=== PATIENT | female | born 1945 | race Caucasian/White ===

== ENCOUNTER → 2016-10-14 | Outpatient (CLI) | payer MEDICARE, OTHER ==
[2016-10-14 11:21] LABS: Blood Urea Nitrogen 15 mg/dL (7-17); Non-African American GFR(MDRD) >60 (>60 ml/min/1.73 sqM)
== END | disposition home or self-care (01) ==
LOC: LABWHC1 10:10
PROVIDERS: ATTEND Psychiatry & Neurology Neurology
DX: R26.89 Other abnormalities of gait and mobility (principal)
CPT/HCPCS: 36415; 82565; 84520

== ENCOUNTER → 2016-10-28 | Outpatient (CLI) | payer MEDICARE, OTHER ==
--- NOTE | 2016-10-28 21:20 | MR ---
MRI of the brain with and without contrast HISTORY: Headaches. TECHNIQUE: T1-weighted sagittal, T2, FLAIR, and diffusion axial, postcontrast T1 axial and coronal vi ews of the brain are submitted. CONTRAST: 15 mL MultiHance graft comparison: CT brain 04/11/2016 FINDINGS: There is no evidence of acute ischemia. The ventricles, basal cisterns, and sulci overlying the co nvexities are consistent with moderate degenerative change. There are severe changes of chronic sinusitis. Mild changes of chronic mastoiditis. Craniocervical junction maintained. Sella turcica has a normal appearance. There is no evidence of cerebellopontine angle mass. There is normal enhancement of the vasculature i ncluding the dural venous sinuses. WHITE MATTER: There are diffuse as well as numerous focal areas of abnormal signal throughout the white matter bila terally. Findings are nonspecific but most typical remote microvascular ischemia. IMPRESSION: 1. No acute intracranial process. 2. Degenerative and nonspecific diffuse white matter changes which are most typical remote microvascu lar ischemia. 3. Severe pansinusitis. Correlate clinically.
== END | disposition home or self-care (01) ==
LOC: RADMRIMAIN 20:19
PROVIDERS: ATTEND Psychiatry & Neurology Neurology
DX: D49.6 Neoplasm of unspecified behavior of brain (principal); J32.4 Chronic pansinusitis; R90.82 White matter disease, unspecified
CPT/HCPCS: 70553; A9577

== ENCOUNTER 2017-03-07 10:26 | Emergency (ER) | payer MEDICARE, OTHER ==
--- NOTE | 2017-03-07 11:38 | CT ---
EXAMINATION TYPE: CT brain darius jennings DATE OF EXAM: 03/07/2017 COMPARISON: 04/11/2016 HISTORY: Fall, head laceration CT DLP: 1251.60 mGycm, Automated exposure control for dose reduction was used. CONTRAST: Patient injected with 0 mL of Omnipaque 300. CT of the brain is performed utilizing 3 mm thick sections through the posterior fossa and 3 mm thick sections through the remaining calvarium. Study is performed within 24 hours of arrival to the hospital. No abnormal hyperdensity is present to suggest an acute intracranial hemorrhage. No mass lesion is evident. No acute infarcts are evident. There is some mild deep white matter hypodensity, most likely basis o f chronic white matter ischemic changes. Ventricles and sulci are mildly prominent for the patient age. No significant interval change is evident. There is an air-fluid level within the right sphenoid sinus. Correlate for right sphenoid sinusitis. IMPRESSIONS: 1. Mild chronic appearing periventricular white matter ischemic type changes with age-related atrophy . CT cervical spine. COMPARISON: None CT of the cervical spine is performed in the axial plane at 2 mm thick sections. Reconstructed image s in the coronal, and sagittal plane are reviewed on the computer. No acute fractures are evident. There is slight kyphosis centered at C5. There may be a mild anterolisthesis of C2 on C3 and C3 on C4 . Some retrolisthesis of C5 on C6 may be present. This may be accentuated in appearance by the endpla te spurring present There is loss of disc height C4-5. Complete loss of disc height is present C5-6. There is severe loss of disc height C6-7 mild loss of disc height C7-T1. Vertebral body heights are preserved. Facet degenerative changes are present C2-C3 contributing to some mild left foraminal narrowing. Face t hypertrophy is present C3-4 with severe right and mild left foraminal narrowing. Severe left forami nal stenosis is present from facet hypertrophy and uncovertebral joint hypertrophy at C4-5. Some mode rate foraminal narrowing is present on the right. Uncovertebral joint hypertrophy is present C5-6 mod erate to severe bilateral foraminal stenosis. Uncovertebral joint hypertrophy at C6-7 has moderate to severe bilateral foraminal stenosis. IMPRESSIONS: 1. Multilevel severe foraminal stenosis due to uncovertebral joint hypertrophy and facet hypertrophy throughout the cervical spine. 2. No acute osseous abnormality. 3. Degenerative disc changes, greatest at C5-6. 4. Posterior endplate spurring C5-6. 5. Minimal spondylolisthesis discussed above can be related to degenerative changes.
--- NOTE | 2017-03-07 12:18 | ED ---
General Adult HPI - General Chief complaint: Head Injury Stated complaint: Fall-head laceration Time Seen by Provider: 03/07/17 10:47 Source: patient, family, RN notes reviewed Mode of arrival: ambulatory Limitations: no limitations - History of Present Illness Initial comments: Patient 71-year-old female who presents emergency room today with a chief complaint of fall occurred earlier today states she was at the sink when she lost balance falling backwards hitting the back of her head causing a laceration to the back of her right elbow and her head. She does admit that she 's had frequent falls she's had multiple studies and appointments about this and it had difficult time figuring out why she loses her balance. She states this is nothing new that happened today she did not feel dizzy or lightheaded prior. She states she just fell backwards. She states she is not here to be seen for the falling symptoms but only because she has a laceration to the back of her head and elbow. She states her tetanus up-to-date. She denies any loss conscious. She denies any other complaints or associated symptoms. States she is not on any blood thinners. Patient denies any recent fever, chills, shortness of breath, chest pain, back pain, abdominal pain, nausea or vomiting, numbness or tingling, dysuria or hematuria, constipation or diarrhea, headaches or visual changes, or any other complaints. - Related Data Home Medications Medication Instructions Recorded Confirmed Aspirin EC [Ecotrin] 81 mg PO DAILY 04/11/16 03/07/17 Cyclobenzaprine [Flexeril] 10 mg PO HS 04/11/16 03/07/17 Hydrochlorothiazide [Hydrodiuril] 25 mg PO DAILY 04/11/16 03/07/17 Levothyroxine Sodium [Synthroid] 75 mcg PO DAILY 04/11/16 03/07/17 Meloxicam [Mobic] 7.5 mg PO BID 04/11/16 03/07/17 Omeprazole 20 mg PO HS 04/11/16 03/07/17 Simvastatin [Zocor] 80 mg PO DAILY 04/11/16 03/07/17 clonazePAM [KlonoPIN] 0.5 mg PO QID 04/11/16 03/07/17 risperiDONE [RisperDAL] 2 mg PO BID 04/11/16 03/07/17 carBAMazepine [Carbatrol] 400 mg PO Q12H 03/07/17 03/07/17 Allergies Allergy/AdvReac Type Severity Reaction Status Date / Time No Known Allergies Allergy Verified 03/07/17 11:02 Review of Systems ROS Statement: Those systems with pertinent positive or pertinent negative responses have been documented in the HPI. ROS Other: All systems not noted in ROS Statement are negative. Past Medical History Past Medical History: GERD/Reflux, Hyperlipidemia, Hypertension, Thyroid Disorder History of Any Multi-Drug Resistant Organisms: None Reported Past Surgical History: Cholecystectomy, Orthopedic Surgery Additional Past Surgical History / Comment(s): cataract surgery, cyst removal left breast. Past Anesthesia/Blood Transfusion Reactions: No Reported Reaction Past Psychological History: Anxiety, Bipolar, Depression Smoking Status: Former smoker Past Alcohol Use History: None Reported Past Drug Use History: None Reported - Past Family History Mother Family Medical History: No Reported History Father Family Medical History: No Reported History General Exam - General Exam Comments Initial Comments: General: The patient is awake and alert, in no distress, and does not appear acutely ill. Eye: Pupils are equal, round and reactive to light, extra-ocular movements are intact. No nystagmus. There is normal conjunctiva bilaterally. No signs of icterus. Ears, nose, mouth and throat: There are moist mucous membranes and no oral lesions. Neck: The neck is supple, there is no tenderness or JVD. Cardiovascular: There is a regular rate and rhythm. No murmur, rub or gallop is appreciated. Respiratory: Lungs are clear to auscultation, respirations are non-labored, breath sounds are equal. No wheezes, stridor, rales, or rhonchi. Musculoskeletal: Normal ROM, no tenderness. Strength 5/5. Sensation intact. Pulses equal bilaterally 2+. Neurological: A&O x 3. CN II-XII intact, There are no obvious motor or sensory deficits. Coordination appears grossly intact. Speech is normal. Skin: Laceration to the back of the right elbow measuring 1 cm. Larger laceration running linear to the back of the scalp measuring approximately 3 cm in length. No active bleeding in either area. Psychiatric: Cooperative, appropriate mood & affect, normal judgment. Limitations: no limitations Course Vital Signs 03/07/17 10:39 Temperature 97.2 F L Pulse Rate 81 Respiratory 20 Rate Blood Pressure 133/69 O2 Sat by Pulse 93 L Oximetry Procedures - Procedures Initial comment: 1 cm linear laceration to the back of the right elbow.The skin was anesthetized with 1% lidocaine. The laceration was then cleansed with Betadine and irrigated with normal saline. The wound was inspected, and there was no evidence of injury to deep structures. No foreign body was noted in the wound. A total of 2 skin sutures were placed utilizing 3-0 nylon. 3 cm linear laceration back of scalp. The skin was anesthetized with 1% lidocaine without epinephrine. The laceration was then cleansed with Betadine and irrigated with normal saline. The wound was inspected, and there was no evidence of injury to deep structures. No foreign body was noted in the wound. A total of 6 skin jessica were placed with good approximation. Medical Decision Making - Medical Decision Making Lacerations cleaned and closed here in the emergency room. Tetanus is up-to- date. CT of the head and neck negative for any acute abnormalities. At this time patient is resting comfortably like to be discharged home. Disposition Clinical Impression: Scalp laceration, Elbow laceration, Fall Disposition: HOME SELF-CARE Condition: Good Instructions: Laceration (ED) Additional Instructions: Please have sutures removed in 10-14 days and jessica removed in 10 days. Please note for any sign of infection which may include increased pain, swelling , redness, fever or chills. Please return to emergency room for any sign of infection or any other concerns. Referrals: Rod Morgan MD [Primary Care Provider] - 1-2 days Time of Disposition: 12:17
[2017-03-07 12:35] VITALS: BP 127/97; PULSE 88; RESP 18; TEMP 97.6
== END 2017-03-07 12:35 | disposition home or self-care (01) ==
LOC: EC 10:26
DX: S01.01XA Laceration without foreign body of scalp, initial encounter (principal); S51.011A Laceration without foreign body of right elbow, initial encounter; R29.6 Repeated falls; E78.5 Hyperlipidemia, unspecified; I10 Essential (primary) hypertension; K21.9 Gastro-esophageal reflux disease without esophagitis; E07.9 Disorder of thyroid, unspecified; F31.9 Bipolar disorder, unspecified; Z87.891 Personal history of nicotine dependence; Z79.1 Long term (current) use of non-steroidal anti-inflammatories (NSAID); Z79.82 Long term (current) use of aspirin; Z79.899 Other long term (current) drug therapy; W01.10XA Fall on same level from slipping, tripping and stumbling with subsequent striking against unspecified object, initial encounter; Y92.89 Other specified places as the place of occurrence of the external cause
CPT/HCPCS: 12002; 70450; 72125; 99283

== ENCOUNTER → 2017-07-13 | Outpatient (CLI) | payer MEDICARE, OTHER ==
--- NOTE | 2017-07-15 09:54 | MM ---
Reason for exam: screening (asymptomatic). Last mammogram was performed 1 year and 3 months ago. History: Patient is postmenopausal. Benign excisional biopsy of the right breast, July 29, 1998. 2 benign excisional biopsies of the left breast. Physical Findings: A clinical breast exam by your physician is recommended on an annual basis and results should be correlated with mammographic findings. MG 3D Screening Mammo W/Cad Bilateral CC and MLO view(s) were taken. Prior study comparison: April 05, 2016, bilateral MG 3d screening mammo w/cad. March 26, 2015, bilateral MG screening mammo w CAD. There are scattered fibroglandular densities. Stable benign round and skin calcifications on the left breast. No significant changes when compared with prior studies. ASSESSMENT: Negative, BI-RAD 1 RECOMMENDATION: Routine screening mammogram of both breasts in 1 year.
== END | disposition home or self-care (01) ==
LOC: RADMAMWWP 07:49
PROVIDERS: ATTEND Family Medicine
DX: Z12.31 Encounter for screening mammogram for malignant neoplasm of breast (principal)
CPT/HCPCS: 77063; G0202

== ENCOUNTER 2018-03-12 14:45 | Observation (INO) | payer MEDICARE, OTHER ==
[2018-03-12] MEDS ORDERED: ORPHENADRINE 30 MG/ML 2 ML VIAL IM STA (15:00)
[2018-03-12] MEDS ORDERED: ORPHENADRINE 30 MG/ML 2 ML VIAL IVP STA (15:04)
--- NOTE | 2018-03-12 15:54 | CT ---
EXAMINATION TYPE: CT lumbar spine wo con DATE OF EXAM: 03/12/2018 3:28 PM COMPARISON: NONE HISTORY: Low back pain CT DLP: 441.1 mGycm Automated exposure control for dose reduction was used. Unenhanced CT of the lumbar spine was performed. Bone and soft tissue window settings are submitted as well as coronal and sagittal reconstructions. The lumbar vertebra have normal alignment. The posterior elements are intact. There is degenerative d isc space narrowing throughout the lumbar spine with some sparing at L4-5 disc. There is spur formati on of the endplates. There is no compression fracture. There is multilevel hypertrophic lumbar facet arthropathy. There is mild spinal stenosis at L3-4 due to facet arthropathy and mild posterior disc b ulging. There is moderately severe spinal stenosis at L4-5 due to facet arthropathy and posterior dis c bulging. There is no lumbar paraspinal mass. Sacroiliac joints appear normal. IMPRESSION: There is spinal stenosis at L3-4. There is severe spinal stenosis at L4-5. No fracture.
[2018-03-12] MEDS ORDERED: MORPHINE SULFATE 2 MG/ML SYRINGE IV STA (16:12)
[2018-03-12] MEDS ORDERED: ONDANSETRON 4 MG/2 ML VIAL IVP PRN (18:16)
[2018-03-12] MEDS ORDERED: ACETAMINOPHEN TAB 325 MG TAB PO PRN (18:16)
[2018-03-12] MEDS ORDERED: NALOXONE 0.4 MG/ML 1 ML VIAL IV PRN (18:16)
[2018-03-12] MEDS ORDERED: methylPREDNISolone SOD SUCCI 125 MG/2 ML VIAL IV STA (18:21)
--- NOTE | 2018-03-12 18:24 | ED ---
Back Pain [facility] - General Chief Complaint: Back Pain/Injury Stated Complaint: Back Pain Time Seen by Provider: 03/12/18 14:48 Source: patient, EMS Limitations: no limitations - History of Present Illness Initial Comments: This patient is a 72-year-old woman who presents with severe low back pain. The patient states she has a history of chronic low back pain, but she states it has been much worse over the past few days. Now she is also having difficulty with getting out of bed and also difficulty with starting urination. The patient states she does have a little bit of radiation to both legs. She denies saddle anesthesia. MD Complaint: back pain -: days(s) Similar Symptoms Previously: Yes Place: home Radiation: none Severity: severe Quality: aching Consistency: constant Improves With: none Worsens With: movement Associated Symptoms: difficulty walking, difficulty urinating, other Treatments Prior to Arrival: NSAIDS - Related Data Home Medications Medication Instructions Recorded Confirmed Cyclobenzaprine [Flexeril] 10 mg PO HS 04/11/16 03/13/18 Hydrochlorothiazide [Hydrodiuril] 25 mg PO DAILY 04/11/16 03/13/18 Levothyroxine Sodium [Synthroid] 75 mcg PO DAILY 04/11/16 03/13/18 Meloxicam [Mobic] 7.5 mg PO BID 04/11/16 03/13/18 Omeprazole 20 mg PO HS 04/11/16 03/13/18 Simvastatin [Zocor] 80 mg PO DAILY 04/11/16 03/13/18 risperiDONE [RisperDAL] 2 mg PO BID 04/11/16 03/13/18 carBAMazepine [Carbatrol] 400 mg PO Q12H 03/07/17 03/13/18 Gabapentin [Neurontin] 300 mg PO BID 03/12/18 03/13/18 methylPREDNISolone Dose Pack See Taper PO DAILY 03/12/18 03/13/18 [Medrol Dose Pack] Alendronate Sodium [Fosamax] 35 mg PO Q7D 03/13/18 03/13/18 Calcium Carb-Vit D 500Mg-200Un 1 tab PO BID 03/13/18 03/13/18 [Oscal 500+D] Docusate [Colace] 100 mg PO HS 03/13/18 03/13/18 Lactulose 10 gm PO DAILY 03/13/18 03/13/18 clonazePAM [KlonoPIN] 1 mg PO QID 03/13/18 03/13/18 Allergies Allergy/AdvReac Type Severity Reaction Status Date / Time acetaminophen [From [facility]] Allergy Unknown Verified 03/13/18 09:37 hydrocodone [From [facility]] Allergy Unknown Verified 03/13/18 09:37 Review of Systems ROS Statement: Those systems with pertinent positive or pertinent negative responses have been documented in the HPI. ROS Other: All systems not noted in ROS Statement are negative. Constitutional: Denies: fever, chills, weakness Respiratory: Denies: cough, dyspnea Cardiovascular: Denies: chest pain, palpitations, edema Gastrointestinal: Denies: abdominal pain, vomiting, diarrhea, constipation Genitourinary: Reports: as per HPI, other (Difficulty with voiding). Denies: urgency, dysuria, frequency, hematuria Musculoskeletal: Reports: as per HPI, back pain Skin: Denies: rash, lesions Neurological: Denies: headache, weakness, numbness, paresthesias Past Medical History Past Medical History: GERD/Reflux, Hyperlipidemia, Hypertension, Thyroid Disorder History of Any Multi-Drug Resistant Organisms: None Reported Past Surgical History: Cholecystectomy, Orthopedic Surgery Additional Past Surgical History / Comment(s): cataract surgery, cyst removal left breast. Past Anesthesia/Blood Transfusion Reactions: No Reported Reaction Past Psychological History: Anxiety, Bipolar, Depression Smoking Status: Former smoker Past Alcohol Use History: None Reported Past Drug Use History: None Reported - Past Family History Mother Family Medical History: No Reported History Father Family Medical History: No Reported History General Exam Limitations: no limitations General appearance: alert, in no apparent distress Head exam: Present: atraumatic, normocephalic Eye exam: Present: normal appearance. Absent: scleral icterus, conjunctival injection Neck exam: Present: normal inspection, full ROM. Absent: tenderness Respiratory exam: Present: normal lung sounds bilaterally. Absent: respiratory distress, wheezes, rales, rhonchi, stridor Cardiovascular Exam: Present: regular rate, normal rhythm, normal heart sounds. Absent: systolic murmur, diastolic murmur, rubs, gallop GI/Abdominal exam: Present: soft, normal bowel sounds. Absent: distended, tenderness, guarding, rebound, rigid, mass, pulsatile mass, hernia Extremities exam: Present: normal inspection, normal capillary refill. Absent: pedal edema, calf tenderness Back exam: Present: normal inspection. Absent: CVA tenderness (R), CVA tenderness (L), paraspinal tenderness, vertebral tenderness Neurological exam: Present: alert, reflexes normal. Absent: motor sensory deficit Skin exam: Present: warm, dry, intact, normal color. Absent: rash Course Vital Signs 03/12/18 03/12/18 03/12/18 14:49 16:09 18:31 Temperature 97.9 F Pulse Rate 77 87 73 Respiratory 18 18 18 Rate Blood Pressure 179/84 162/86 139/73 O2 Sat by Pulse 96 99 96 Oximetry Medical Decision Making - Medical Decision Making This patient is 72-year-old woman presenting with low back pain and concerns of some possible new urinary retention. There is no acute injury. The patient does have some spinal stenosis visible on the computed tomography scan. I discussed the case with Birgit Tineo, with Dr. Chowdhury's service. They request that MRI be obtained in the morning and patient started on steroids. These have been ordered and case also discussed with admitting physician. - Lab Data Result diagrams: 03/12/18 16:58 03/13/18 09:00 Lab Results 03/12/18 03/12/18 03/12/18 Range/Units 16:58 16:58 16:58 WBC 6.9 (3.8-10.6) k/uL RBC 4.43 (3.80-5.40) m/uL Hgb 13.9 (11.4-16.0) gm/dL Hct 40.2 (34.0-46.0) % MCV 90.6 (80.0-100.0) fL MCH 31.3 (25.0-35.0) pg MCHC 34.6 (31.0-37.0) g/dL RDW 12.1 (11.5-15.5) % Plt Count 335 (150-450) k/uL Neutrophils % 68 % Lymphocytes % 23 % Monocytes % 7 % Eosinophils % 0 % Basophils % 0 % Neutrophils # 4.6 (1.3-7.7) k/uL Lymphocytes # 1.6 (1.0-4.8) k/uL Monocytes # 0.5 (0-1.0) k/uL Eosinophils # 0.0 (0-0.7) k/uL Basophils # 0.0 (0-0.2) k/uL Sodium 131 L (137-145) mmol/L Potassium 3.7 (3.5-5.1) mmol/L Chloride 93 L (98-107) mmol/L Carbon Dioxide 25 (22-30) mmol/L Anion Gap 13 mmol/L BUN 18 H (7-17) mg/dL Creatinine 0.60 (0.52-1.04) mg/dL Est GFR (CKD-EPI)AfAm >90 (>60 ml/min/1.73 sqM) Est GFR (CKD-EPI)NonAf >90 (>60 ml/min/1.73 sqM) Glucose 100 H (74-99) mg/dL Calcium 9.5 (8.4-10.2) mg/dL Urine Color Yellow Urine Appearance Clear (Clear) Urine pH 7.0 (5.0-8.0) Ur Specific [place] 1.012 (1.001-1.035) Urine Protein Negative (Negative) Urine Glucose (UA) Negative (Negative) Urine Ketones Negative (Negative) Urine Blood Negative (Negative) Urine Nitrite Negative (Negative) Urine Bilirubin Negative (Negative) Urine Urobilinogen <2.0 (<2.0) mg/dL Ur Leukocyte Esterase Negative (Negative) Disposition Clinical Impression: Lumbar back pain, Urinary retention Disposition: ADMITTED IP TO THIS HOSP Condition: Fair
[2018-03-12] MEDS: SODIUM CHLORIDE 0.9% 1,000 ML IV SCH (18:30)
[2018-03-12] MEDS ORDERED: methylPREDNISolone SOD SUCCI 125 MG/2 ML VIAL IV SCH (18:30)
[2018-03-12 18:44] LABS: Basophils % (A) 0 %; Eosinophils % (A) 0 %; HCT 40.2 % (34.0-46.0); HGB 13.9 gm/dL (11.4-16.0); Lymphocytes # (A) 1.6 k/uL (1.0-4.8); Lymphocytes % (A) 23 %; MCH 31.3 pg (25.0-35.0); MCHC 34.6 g/dL (31.0-37.0); MCV 90.6 fL (80.0-100.0); Mean Platelet Volume 6.7; Monocytes # (A) 0.5 k/uL (0-1.0); Monocytes % (A) 7 %; Neutrophils # (A) 4.6 k/uL (1.3-7.7); Neutrophils % (A) 68 %; Platelet Count 335 k/uL (150-450); RBC 4.43 m/uL (3.80-5.40); RDW 12.1 % (11.5-15.5); WBC 6.9 k/uL (3.8-10.6)
[2018-03-12 18:46] LABS: Appearance,Urine Clear (Clear); Bilirubin,Urine Negative (Negative); Blood,Urine Negative (Negative); Color,Urine Yellow; Glucose,Urine (UA) Negative (Negative); Ketones,Urine Negative (Negative); Leukocyte Esterase,Urine Negative (Negative); Nitrite,Urine Negative (Negative); Protein,Urine Negative (Negative); Specific Gravity,Urine 1.012 (1.001-1.035); Urobilinogen,Urine <2.0 mg/dL (<2.0)
[2018-03-12 19:07] LABS: Anion Gap 13 mmol/L; Blood Urea Nitrogen 18 mg/dL (7-17); Calcium 9.5 mg/dL (8.4-10.2); Carbon Dioxide 25 mmol/L (22-30); Chloride 93 mmol/L (98-107); Glucose 100 mg/dL (74-99); Potassium 3.7 mmol/L (3.5-5.1); Sodium 131 mmol/L (137-145)
[2018-03-12 19:44] VITALS: BMI 28.3
[2018-03-12] MEDS: carBAMazepine 200 MG TAB PO SCH ×2 (20:57)
[2018-03-12] MEDS: risperiDONE 2 MG TAB PO SCH (20:58)
[2018-03-12] MEDS: MELOXICAM 7.5 MG TAB PO SCH (20:58)
[2018-03-12] MEDS: PANTOPRAZOLE 40 MG TABLET PO SCH (20:58)
[2018-03-12] MEDS: CYCLOBENZAPRINE 10 MG TAB PO SCH (20:58)
[2018-03-12] MEDS: clonazePAM 0.5 MG TAB PO SCH (20:59)
[2018-03-13] MEDS: methylPREDNISolone SOD SUCCI 125 MG/2 ML VIAL IV SCH ×5 (00:26→23:56)
[2018-03-13] MEDS: LEVOTHYROXINE 75 MCG TAB PO SCH (04:56)
[2018-03-13] MEDS: MORPHINE SULFATE 2 MG/ML SYRINGE IV PRN ×3 (07:22→22:52)
[2018-03-13] MEDS: SODIUM CHLORIDE 0.9% 1,000 ML IV SCH (08:14)
[2018-03-13] MEDS: MELOXICAM 7.5 MG TAB PO SCH ×2 (08:19→20:01)
[2018-03-13] MEDS: clonazePAM 0.5 MG TAB PO SCH ×4 (08:19→21:42)
[2018-03-13] MEDS: risperiDONE 2 MG TAB PO SCH ×2 (08:20→21:43)
[2018-03-13] MEDS: ASPIRIN 81 MG PO SCH (08:21)
--- NOTE | 2018-03-13 08:21 | P.CNOR ---
History of Present Illness - [facility] Consult date: 03/13/18 Consult reason: low back pain History of present illness: Patient's very pleasant 72-year-old female who has a history of degenerative changes at her lumbar spine. Her symptoms became significantly worse over the past few days where she has been increasingly unable to ambulate. Her main issue is that her pain is centered at her lower back and toward her buttocks bilaterally. She has some symptoms down her bilateral legs worse on the right than left. Her pain worsens when she tries to get out of bed when she tries to ambulate and she is thus been unable ambulate over the past 3 days. She presented by ambulance to the hospital. She denies any acute injury. She denies any falls. She says she is able to urinate but she has to start and stop frequently. She does not feel weak in her legs but she is unable to ambulate on her legs due to pain. She has history of low back pain and lower extremity radiculopathy. 2 years ago she had facet injections with Dr. Branch did very well with these 2 years ago. She actually just saw Dr. Branch on Tuesday and was planning on proceeding with further interventional conservative treatment with him but was unable to proceed thus far and presented to the hospital. He she denies any fevers chills or night sweats. She hasn't used her neck or upper extremities. Review of Systems he denies fevers chills night sweats. Denies injury or trauma. Denies any weakness in her legs. Denies any bowel changes. She has some on and off starting with her screening when she urinates but is able to urinate. She had history of facet injections [address] Anthony did well with those. Past Medical History Past Medical History: GERD/Reflux, Hyperlipidemia, Hypertension, Musculoskeletal Disorder (Severe degenerative changes in the low back with history of low back pain and radiculopathy), Thyroid Disorder History of Any Multi-Drug Resistant Organisms: None Reported Past Surgical History: Cholecystectomy, Orthopedic Surgery Additional Past Surgical History / Comment(s): cataract surgery, cyst removal left breast. Both hips replaced, rt foot surgery with plate and screws, Past Anesthesia/Blood Transfusion Reactions: No Reported Reaction Past Psychological History: Anxiety, Bipolar, Depression Smoking Status: Former smoker Past Alcohol Use History: None Reported Past Drug Use History: None Reported - Past Family History Mother Family Medical History: No Reported History Father Family Medical History: No Reported History Medications and Allergies Home Medications Medication Instructions Recorded Confirmed Type Aspirin EC [Ecotrin] 81 mg PO DAILY 04/11/16 03/12/18 History Cyclobenzaprine [Flexeril] 10 mg PO HS 04/11/16 03/12/18 History Hydrochlorothiazide [Hydrodiuril] 25 mg PO DAILY 04/11/16 03/12/18 History Levothyroxine Sodium [Synthroid] 75 mcg PO DAILY 04/11/16 03/12/18 History Meloxicam [Mobic] 7.5 mg PO BID 04/11/16 03/12/18 History Omeprazole 20 mg PO HS 04/11/16 03/12/18 History Simvastatin [Zocor] 80 mg PO DAILY 04/11/16 03/12/18 History clonazePAM [KlonoPIN] 0.5 mg PO QID 04/11/16 03/12/18 History risperiDONE [RisperDAL] 2 mg PO BID 04/11/16 03/12/18 History carBAMazepine [Carbatrol] 400 mg PO Q12H 03/07/17 03/12/18 History Gabapentin [Neurontin] 300 mg PO DAILY 03/12/18 03/12/18 History methylPREDNISolone Dose Pack 4 mg PO DAILY 03/12/18 03/12/18 History [Medrol Dose Pack] Allergies Allergy/AdvReac Type Severity Reaction Status Date / Time acetaminophen [From [place]] Allergy Unknown Verified 03/12/18 14:49 hydrocodone [From [place]] Allergy Unknown Verified 03/12/18 14:49 Physical Examination Osteopathic Statement: *. No significant issues noted on an osteopathic structural exam other than those noted in the History and Physical/Consult. - L Spine: dermatomal strength & reflexes bilateral Strength: hip flexion: 5/5 (At her lower back she has some diffuse spasm. She has some tenderness over her lower back diffusely. There is no open wounds lacerations or abrasions. At her lower extremity she has sustained dorsal flexion plantarflexion and extensor hallucis longus intact. She is able to lift her legs up off the bed independently without any pain or problems. She has significant pain at her lower back when she tries to mobilize rollover and get out of bed. She has sustained dorsal to plantar flexion and EHL intact. There is no hyperreflexia. There is no clonus. Her thighs and calves soft nontender. Her abdomen soft nontender. Her upper extremity is have full active and passive range of motion.) Results - Labs Labs: Abnormal Lab Results - Last 24 Hours (Table) 03/12/18 Range/Units 16:58 Sodium 131 L (137-145) mmol/L Chloride 93 L (98-107) mmol/L BUN 18 H (7-17) mg/dL Glucose 100 H (74-99) mg/dL H & H 03/12/18 Range/Units 16:58 Hgb 13.9 (11.4-16.0) gm/dL Hct 40.2 (34.0-46.0) % Result Diagrams: 03/12/18 16:58 03/12/18 16:58 - Diagnostic results CT Scan - lumbar: report reviewed, image reviewed (Computed tomography scan of her lumbar spine was performed yesterday and I have reviewed the images and the results. She has significant disc degeneration at L2-3 L3 4 and L4 5. There is severe facet arthrosis at each level. She has severe spinal stenosis particularly at L4 5 and L3 4. There is moderate to severe spinal stenosis L2- 3. There is significant disc degeneration and some evidence of stenosis L4 L5 S1. There is no obvious fracture.) Assessment and Plan Assessment: Acute on chronic low back pain Inability to ambulate Severe spinal stenosis L3 4 L4 5 Facet arthrosis and degenerative disc disease Plan: Acute on chronic low back pain Inability to ambulate Severe spinal stenosis L3 4 L4 5 Facet arthrosis and degenerative disc disease The patient has inability to ambulate and severe intractable low back pain. She has primarily acute on chronic issues with her severe spinal stenosis L3 4 L4 5 and further stenosis L2-3 and L5-S1. She has severe facet arthrosis and disc degeneration. I do not see a specific new injury she has an acute flareup at this point. She is having lower extremity radiculopathy bilaterally worse on the right than the left. The patient has been started on IV steroid medication was appropriate as well as her a medications. We will need an MRI to obtain further detail of her lumbar spine to assess the severity of the stenosis and it determine the adjacent levels. The MRI has been ordered already and it is pending. We will have interventional pain management see her for the possibly of epidural steroid injections while she is here in Hospital. After hospitalization she is already scheduled to follow-up with Dr. Branch and I think that is appropriate in terms of maximizing interventional pain management as she did have some improvement in the past with facet injections. We will also have physical therapy see her to try to help her mobilize as well. She would be a candidate for surgical intervention in the form of decompression and fusion surgery for her lumbar spine if interventional pain management and conservative measures were to fail. I do not think that we would plan to perform surgical intervention during this hospitalization and explained that to her and her daughter at bedside. I would like to see her maximizing interventional pain management and conservative treatment at this point to try to alleviate the acute exacerbation that she is having. We will continue to follow her closely. Time with Patient: Greater than 30
[2018-03-13] MEDS: ATORVASTATIN 40 MG TAB PO SCH (08:22)
[2018-03-13] MEDS: GABAPENTIN 300 MG CAP PO SCH (08:22)
[2018-03-13] MEDS: HYDROCHLOROTHIAZIDE 25 MG TAB PO SCH (08:22)
[2018-03-13 09:34] LABS: ALT 74 U/L (9-52); AST 56 U/L (14-36); Albumin 3.3 g/dL (3.5-5.0); Alkaline Phosphatase 118 U/L (38-126); Anion Gap 10 mmol/L; Blood Urea Nitrogen 11 mg/dL (7-17); Calcium 8.9 mg/dL (8.4-10.2); Carbon Dioxide 28 mmol/L (22-30); Chloride 93 mmol/L (98-107); Glucose 177 mg/dL (74-99); Potassium 3.2 mmol/L (3.5-5.1); Sodium 131 mmol/L (137-145); Total Bilirubin 0.2 mg/dL (0.2-1.3); Total Protein 5.7 g/dL (6.3-8.2)
[2018-03-13] MEDS ORDERED: Potassium Replacement Protocol 1 EACH MISC MISCELLANE PRN (12:47)
--- NOTE | 2018-03-13 12:47 | P.HPIM ---
History of Present Illness H&P Date: 03/13/18 Chief Complaint: back pain 72-year-old female who presented to the emergency room with a chief complaint of severe back pain. The patient does have a history of chronic lower back pain but states it has worsened in severity since November. She states over the last few days her pain has been so severe she has been unable to ambulate. She also reports difficulty with urination and inability to start her stream. The patient reports a history of facet block injections x [address] Branch. She reports the last one was approximately two years ago. She was seen by Dr. Branch on Tuesday and had requested a third injection but was able to have it completed due to insurance reasons per patients daughter. She was started on PO steroids and Neurontin by Dr. Branch. Patient states her pain was so severe yesterday she was unable to ambulate at all. EMS was called and patient was brought to [facility] for further evaluation. The patient has a history of chronic low back pain, hyperlipidemia, hypertension , and gastroesophageal reflux disease. She also has a history of anxiety, bipolar, and depression. Surgical history includes bilateral hip replacements, right foot surgery with plate and screws, Cholecystectomy, and cataract surgery CT lumbar spine: Mild spinal stenosis at L3-4 due to facet arthropathy and mild posterior disc bulging. Moderately severe spinal stenosis at L4-5 due to facet arthropathy and posterior disc bulging. No fractures were visualized. Laboratory data: WBC 6.9. Hemoglobin 13.9. Platelet count 335. Sodium 131. Potassium 3.7. Chloride 93. BUN 18. Creatinine 0.60. Glucose 100. Urinalysis was unremarkable The patient was admitted to the hospital under the care of Dr. Morgan. Consultations were placed to orthopedics, Dr Chowdhury. Review of Systems GENERAL: Patient denies fever. Denies chills. EYES: Denies blurred vision. Denies vision changes. Denies eye pain. EARS, NOSE, MOUTH, & THROAT: Denies headache. Denies sore throat. Denies ear pain. RESPIRATORY: Denies cough. Denies shortness of breath. Denies sputum production. Denies hemoptysis. CARDIOVASCULAR: Denies chest pain or pressure. Denies palpitations. Denies arrhythmias. GASTROINTESTINAL: Denies abdominal pain. Denies diarrhea. Denies constipation. Denies nausea. Denies vomiting. Denies heartburn. Denies blood in the stool. GENITOURINARY: Positive for difficulty urinating and initiating urinary stream. Denies urinary frequency. Denies burning. Denies dysuria. Denies cloudy urine. Denies blood in the urine. MUSCULOSKELETAL: Positive for history of chronic back pain. Positive for increased severity of back pain and range of motion. Positive for difficulty with ambulation. INTEGUMENTARY: Denies pruitis. Denies rash. PSYCHIATRIC: Denies suicidal or homicial ideations. ENDOCRINE: Denies weight change. Denies polydipsia. Denies polyuria. HEMATOLOGIC: Denies bleeding disorders. Past Medical History Past Medical History: GERD/Reflux, Hyperlipidemia, Hypertension, Musculoskeletal Disorder (Severe degenerative changes in the low back with history of low back pain and radiculopathy), Thyroid Disorder History of Any Multi-Drug Resistant Organisms: None Reported Past Surgical History: Cholecystectomy, Orthopedic Surgery Additional Past Surgical History / Comment(s): cataract surgery, cyst removal left breast. Both hips replaced, rt foot surgery with plate and screws, Past Anesthesia/Blood Transfusion Reactions: No Reported Reaction Past Psychological History: Anxiety, Bipolar, Depression Smoking Status: Former smoker Past Alcohol Use History: None Reported Past Drug Use History: None Reported - Past Family History Mother Family Medical History: No Reported History Father Family Medical History: No Reported History Medications and Allergies Home Medications Medication Instructions Recorded Confirmed Type Cyclobenzaprine [Flexeril] 10 mg PO HS 04/11/16 03/13/18 History Hydrochlorothiazide [Hydrodiuril] 25 mg PO DAILY 04/11/16 03/13/18 History Levothyroxine Sodium [Synthroid] 75 mcg PO DAILY 04/11/16 03/13/18 History Meloxicam [Mobic] 7.5 mg PO BID 04/11/16 03/13/18 History Omeprazole 20 mg PO HS 04/11/16 03/13/18 History Simvastatin [Zocor] 80 mg PO DAILY 04/11/16 03/13/18 History risperiDONE [RisperDAL] 2 mg PO BID 04/11/16 03/13/18 History carBAMazepine [Carbatrol] 400 mg PO Q12H 03/07/17 03/13/18 History Gabapentin [Neurontin] 300 mg PO BID 03/12/18 03/13/18 History methylPREDNISolone Dose Pack See Taper PO DAILY 03/12/18 03/13/18 History [Medrol Dose Pack] Alendronate Sodium [Fosamax] 35 mg PO Q7D 03/13/18 03/13/18 History Calcium Carb-Vit D 500Mg-200Un 1 tab PO BID 03/13/18 03/13/18 History [Oscal 500+D] Docusate [Colace] 100 mg PO HS 03/13/18 03/13/18 History Lactulose 10 gm PO DAILY 03/13/18 03/13/18 History clonazePAM [KlonoPIN] 1 mg PO QID 03/13/18 03/13/18 History Allergies Allergy/AdvReac Type Severity Reaction Status Date / Time acetaminophen [From [place]] Allergy Unknown Verified 03/13/18 09:37 hydrocodone [From [place]] Allergy Unknown Verified 03/13/18 09:37 Physical Exam Vitals: Vital Signs Temp Pulse Pulse Resp BP BP Pulse Ox 03/13/18 05:00 97.7 F 92 16 140/77 94 L 03/12/18 21:30 98.9 F 99 17 143/77 95 03/12/18 19:50 97.7 F 87 16 144/74 94 L 03/12/18 18:31 73 18 139/73 96 03/12/18 16:09 87 18 162/86 99 03/12/18 14:49 97.9 F 77 18 179/84 96 Intake and Output 03/12/18 03/13/18 03/13/18 22:59 06:59 14:59 Intake Total 1680 Output Total 550 1000 Balance -550 680 Intake: IV 600 Sodium Chloride 0.9% 1, 600 000 ml @ 75 mls/hr IV . [id number] [facility] Rx#:[id number] Oral 1080 Output: Urine 550 1000 Uretheral ([place]) 350 1000 Other: Voiding Method Indwelling Catheter Weight 68.039 kg GENERAL: This is a 72-year-old female in no apparent distress at the time of examination. Pleasant and cooperative. HEENT: Head is atraumatic, normocephalic. Pupils are equal, round, and reactive to light. Sclerae anicteric. Conjunctivae are clear. Mucus membranes of the mouth are moist. Neck is supple. RESPIRATORY: Clear to ausculation. No wheezes, rales, or rhonchi. No use of accessory muscles. Patient maintaining oxygen saturation greater than 92%. No chest wall tenderness is noted on palpation or with deep breathing. CARDIOVASCULAR: Regular rate and rhythm. S1 and S2 noted. No systolic or diastolic murmur auscultated. No JVD noted. No S3 or S4 noted. GASTROINTESTINAL: No distention noted. Abdomen soft and round. Normal active bowel sounds auscultated x 4 quadrants. No pain or tenderness noted upon palpation. INTEGUMENTARY: No cyanosis. No jaundice. No rashes noted. No cellulitis noted. GENITOURINARY: Indwelling urinary catheter present secondary to urinary retention. Clear yellow urine. EXTREMITIES: Pain and tenderness noted upon palpation of lumbar spine. Sensation intact to bilateral lower extremities. Patient able to lift bilateral lower extremities off the bed and hold them, but reports of pain when this is performed. Patient able to perform plantar flexion and dorsiflexion-equal bilaterally. 2+ peripheral pulses. No evidence of peripheral edema. No calf tenderness noted. NEUROLOGIC: Cranial nerves II-XII intact. PSYCHIATRIC: Awake, alert, and oriented X 3. Appropriate affect. Intact judgement and insight. Results CBC & Chem 7: 03/12/18 16:58 03/13/18 09:00 Labs: Abnormal Lab Results - Last 24 Hours (Table) 03/12/18 Range/Units 16:58 Sodium 131 L (137-145) mmol/L Chloride 93 L (98-107) mmol/L BUN 18 H (7-17) mg/dL Glucose 100 H (74-99) mg/dL Thrombosis Risk Factor Assmnt - Choose All That Apply Each Risk Factor Represents 2 Points: Age 61-74 years, Patient confined to bed Thrombosis Risk Factor Assessment Total Risk Factor Score: 4 Thrombosis Risk Factor Assessment Level: Moderate Risk Assessment and Plan Plan: ASSESSMENT: Acute on chronic lumbar back pain, Intractable pain Urinary retention and difficulty initiating urinary stream, secondary to above Spinal stenosis of L3-4 and L4-5 Degenerative disc disease Hypertension Hyperlipidemia Hypothyroidism Generalized anxiety disorder Bipolar disorder Mild Hyponatremia, may be secondary to HCTZ PLAN: Dr. Chowdhury, orthopedics on consult. Appreciate recommendations and input Continue IV steroids: 60mg Q6 hours Pain management consulted for possible epidural injection MRI ordered. Await results Monitor sodium levels. Repeat this morning Continue urinary catheter PT/OT Home meds as appropriate GI prophylaxis: Protonix 40mg PO at HS DVT prophylaxis: SCDs to bilateral lower extremities. Encourage ambulation Monitor vital signs and address as appropriate Further recommendations pending patients clinical course Discharge plan: Patient to return home Nurse practitioner note has been reviewed by physician. Signing provider agrees with the documented findings, assessment, and plan of care.
[2018-03-13] MEDS: POTASSIUM CHLORIDE ER 20 MEQ TAB.ER PO SCH ×2 (12:55→13:47)
--- NOTE | 2018-03-13 15:26 | MR ---
EXAMINATION TYPE: MR lumbar spine wo con DATE OF EXAM: 03/13/2018 COMPARISON: MRI lumbar spine March 22, 2016. CT lumbar spine March 12, 2018 HISTORY: Back pain with urinary retention. TECHNIQUE: Multiplanar, multisequence imaging of the lumbar spine is performed without IV contrast. FINDINGS: Sagittal images of the lumbar spine show vertebral body heights and alignment to remain sat isfactory. There is multilevel disc space narrowing and disc desiccation. There is fairly moderate to advanced disc space narrowing L3-L4 level which is progressed from prior MRI, heterogeneous endplate changes are noted with mild to moderate anterior spurring. There is fairly moderate disc space narr owing L5-S1 level redemonstrated. Multilevel small posterior disc herniations are seen on sagittal im ages effacing anterior thecal sac. The conus medullaris remains normal in position and signal ending at T12-L1 disc space. The bone marrow signal intensity remains heterogeneous with moderate multileve l anterior and lateral spurring redemonstrated. Axial images at the T12-L1 level redemonstrate mild to moderate broad disc bulge effacing anterior th ecal sac and axial image 28, bilateral neural foramina are patent. Axial images at L1-L2 level show mild broad disc bulge mildly effacing anterior thecal sac with mild facet arthropathy bilaterally. Bilateral neural foramina are patent. Axial images at L2-L3 level show mild to moderate facet degenerative changes bilaterally. There is br oad disc bulge. There is mild effacement of the anterior and posterior lateral thecal sac. There is m ild bilateral anterior inferior neural foraminal narrowing. Axial images at L3-L4 level show moderate to advanced facet degenerative changes and ligamentum flavu m hypertrophy effacing posterior lateral thecal sac. There is moderate to severe broad disc bulge eff acing anterior thecal sac. There is moderate right and mild to moderate left-sided anterior inferior neural foraminal narrowing. Encroachment on right L3 nerve is felt present sagittal image 11 similar to prior as there is right lateral/foraminal disc protrusion component seen on axial image 13. Axial images at L4-L5 level show advanced facet degenerative changes and ligament flavum hypertrophy effacing posterior lateral thecal sac. There is broad-based posterior disc protrusion effacing anteri or thecal sac. Most prominent spinal canal stenosis is seen at this level on axial image 9 more promi nent than prior MRI. There is is mild bilateral neural foraminal narrowing at this level. Axial images at L5-S1 level show moderate facet degenerative changes bilaterally. There is broad disc bulge seen. Spinal canal is preserved. There is moderate to severe bilateral neural foraminal narrow ing with encroachment on both L5 nerve is felt present on sagittal images, this is not significantly changed from prior study. No suspicious retroperitoneal findings are seen. IMPRESSION: Multilevel degenerative changes in lumbar spine as detailed above, increased degenerative changes L3-L4 level are noted, increased spinal canal effacement or stenosis L4-L5 level is seen. Ot her findings as noted above.
[2018-03-13] MEDS: CYCLOBENZAPRINE 10 MG TAB PO SCH (20:01)
[2018-03-13] MEDS: PANTOPRAZOLE 40 MG TABLET PO SCH (20:02)
[2018-03-13] MEDS: carBAMazepine 200 MG TAB PO SCH (20:02)
[2018-03-13] MEDS: DOCUSATE 100 MG CAP PO SCH (20:05)
[2018-03-13 22:08] LABS: Glucose,Whole Blood 133 mg/dL (75-99)
[2018-03-13] MEDS: INSULIN ASPART 100 UNIT/ML 1 ML 10 ML VIAL SQ SCH (22:53)
[2018-03-14] MEDS: LEVOTHYROXINE 75 MCG TAB PO SCH (05:51)
[2018-03-14] MEDS: methylPREDNISolone SOD SUCCI 125 MG/2 ML VIAL IV SCH (05:51)
[2018-03-14] MEDS: MORPHINE SULFATE 2 MG/ML SYRINGE IV PRN ×2 (06:06→17:02)
[2018-03-14] MEDS: SODIUM CHLORIDE 0.9% 1,000 ML IV SCH ×2 (06:09→07:41)
[2018-03-14 06:57] LABS: Glucose,Whole Blood 137 mg/dL (75-99)
[2018-03-14] MEDS: INSULIN ASPART 100 UNIT/ML 1 ML 10 ML VIAL SQ SCH ×4 (07:31→20:33)
[2018-03-14] MEDS: carBAMazepine 200 MG TAB PO SCH ×2 (07:32→20:32)
[2018-03-14] MEDS: ATORVASTATIN 40 MG TAB PO SCH (07:33)
[2018-03-14] MEDS: DOCUSATE 100 MG CAP PO SCH ×2 (07:33→20:33)
[2018-03-14] MEDS: risperiDONE 2 MG TAB PO SCH ×2 (07:34→20:31)
[2018-03-14] MEDS: GABAPENTIN 300 MG CAP PO SCH (07:34)
[2018-03-14] MEDS: HYDROCHLOROTHIAZIDE 25 MG TAB PO SCH (07:35)
[2018-03-14] MEDS: ASPIRIN 81 MG PO SCH (07:39)
[2018-03-14] MEDS: clonazePAM 0.5 MG TAB PO SCH ×2 (07:51→12:23)
[2018-03-14] MEDS: MELOXICAM 7.5 MG TAB PO SCH ×2 (07:52→20:33)
[2018-03-14 08:20] LABS: ALT 61 U/L (9-52); AST 27 U/L (14-36); Albumin 3.7 g/dL (3.5-5.0); Alkaline Phosphatase 130 U/L (38-126); Anion Gap 11 mmol/L; Blood Urea Nitrogen 15 mg/dL (7-17); Calcium 9.5 mg/dL (8.4-10.2); Carbon Dioxide 27 mmol/L (22-30); Chloride 98 mmol/L (98-107); Glucose 114 mg/dL (74-99); Magnesium 1.9 mg/dL (1.6-2.3); Potassium 4.2 mmol/L (3.5-5.1); Sodium 136 mmol/L (137-145); Total Bilirubin 0.2 mg/dL (0.2-1.3); Total Protein 6.2 g/dL (6.3-8.2)
--- NOTE | 2018-03-14 10:35 | P.PN ---
Subjective Progress Note Date: 03/14/18 72-year-old female who presented to the emergency room with a chief complaint of severe back pain. The patient does have a history of chronic lower back pain but states it has worsened in severity since November. She states over the last few days her pain has been so severe she has been unable to ambulate. She also reports difficulty with urination and inability to start her stream. The patient reports a history of facet block injections x [address] Branch. She reports the last one was approximately two years ago. She was seen by Dr. Branch on Tuesday and had requested a third injection but was able to have it completed due to insurance reasons per patients daughter. She was started on PO steroids and Neurontin by Dr. Branch. Patient states her pain was so severe yesterday she was unable to ambulate at all. EMS was called and patient was brought to [facility] for further evaluation. The patient has a history of chronic low back pain, hyperlipidemia, hypertension , and gastroesophageal reflux disease. She also has a history of anxiety, bipolar, and depression. Surgical history includes bilateral hip replacements, right foot surgery with plate and screws, Cholecystectomy, and cataract surgery CT lumbar spine: Mild spinal stenosis at L3-4 due to facet arthropathy and mild posterior disc bulging. Moderately severe spinal stenosis at L4-5 due to facet arthropathy and posterior disc bulging. No fractures were visualized. Laboratory data: WBC 6.9. Hemoglobin 13.9. Platelet count 335. Sodium 131. Potassium 3.7. Chloride 93. BUN 18. Creatinine 0.60. Glucose 100. Urinalysis was unremarkable The patient was admitted to the hospital under the care of Dr. Morgan. Consultations were placed to orthopedics, Dr Chowdhury. 03/14/2018 Patient seen and examined at the bedside on rounds with Dr. Morgan. Patient is awake and alert. Patient reports improvement in her back pain. She remains on IV solumedral 60mg Q6 hours. She is scheduled for epidural injection today per anesthesia. Potassium is 4.2 today, up from 3.2 after receiving supplementation yesterday. Urinary catheter remains intact with clear yellow urine. Vital signs remain stable. Objective - Vital Signs Vital signs: Vital Signs Temp 97.5 F L 03/14/18 05:00 Pulse 95 03/14/18 05:00 Resp 16 03/14/18 05:00 BP 144/80 03/14/18 05:00 Pulse Ox 93 L 03/14/18 05:00 Intake & Output 03/13/18 03/14/18 03/14/18 18:59 06:59 18:59 Intake Total 600 1180 Output Total 1999 1999 Balance -1400 -820 Weight 68.039 kg Intake: IV 600 600 Sodium Chloride 0.9% 1, 600 600 000 ml @ 75 mls/hr IV . [id number] Rx#:[id number] Oral 580 Output: Urine 1999 1999 Uretheral (Garay) 1999 Other: Voiding Method Indwelling Catheter Indwelling Catheter - Exam GENERAL: This is a 72-year-old female in no apparent distress at the time of examination. Pleasant and cooperative. HEENT: Head is atraumatic, normocephalic. Pupils are equal, round, and reactive to light. Sclerae anicteric. Conjunctivae are clear. Mucus membranes of the mouth are moist. Neck is supple. RESPIRATORY: Clear to ausculation. No wheezes, rales, or rhonchi. No use of accessory muscles. Patient maintaining oxygen saturation greater than 92%. No chest wall tenderness is noted on palpation or with deep breathing. CARDIOVASCULAR: Regular rate and rhythm. S1 and S2 noted. No systolic or diastolic murmur auscultated. No JVD noted. No S3 or S4 noted. GASTROINTESTINAL: No distention noted. Abdomen soft and round. Normal active bowel sounds auscultated x 4 quadrants. No pain or tenderness noted upon palpation. INTEGUMENTARY: No cyanosis. No jaundice. No rashes noted. No cellulitis noted. GENITOURINARY: Indwelling urinary catheter present with clear yellow urine. EXTREMITIES: Pain and tenderness noted upon palpation of lumbar spine. Sensation intact to bilateral lower extremities. Patient able to lift bilateral lower extremities off the bed and hold them, but reports of pain when this is performed. Patient able to perform plantar flexion and dorsiflexion-equal bilaterally. 2+ peripheral pulses. No evidence of peripheral edema. No calf tenderness noted. NEUROLOGIC: Cranial nerves II-XII intact. PSYCHIATRIC: Awake, alert, and oriented X 3. Appropriate affect. Intact judgement and insight. - Labs CBC & Chem 7: 03/12/18 16:58 03/14/18 07:21 Labs: Abnormal Lab Results - Last 24 Hours (Table) 03/13/18 03/13/18 03/14/18 Range/Units 09:00 22:04 06:56 Sodium 131 L (137-145) mmol/L Potassium 3.2 L (3.5-5.1) mmol/L Chloride 93 L (98-107) mmol/L Glucose 177 H (74-99) mg/dL POC Glucose (mg/dL) 133 H 137 H (75-99) mg/dL AST 56 H (14-36) U/L ALT 74 H (9-52) U/L Alkaline Phosphatase (38-126) U/L Total Protein 5.7 L (6.3-8.2) g/dL Albumin 3.3 L (3.5-5.0) g/dL 03/14/18 Range/Units 07:21 Sodium 136 L (137-145) mmol/L Potassium (3.5-5.1) mmol/L Chloride (98-107) mmol/L Glucose 114 H (74-99) mg/dL POC Glucose (mg/dL) (75-99) mg/dL AST (14-36) U/L ALT 61 H (9-52) U/L Alkaline Phosphatase 130 H (38-126) U/L Total Protein 6.2 L (6.3-8.2) g/dL Albumin (3.5-5.0) g/dL Assessment and Plan Plan: ASSESSMENT: Acute on chronic lumbar back pain, Intractable pain Urinary retention and difficulty initiating urinary stream, secondary to above Spinal stenosis of L3-4 and L4-5 Degenerative disc disease Hypertension Hyperlipidemia Hypothyroidism Generalized anxiety disorder Bipolar disorder Mild hyponatremia, NA 131 on admission, resolved PLAN: Dr. Chowdhury, orthopedics on consult. Appreciate recommendations and input Decrease IV steroids to 40mg Q 8 hours. Patient to receive epidural injection today per anesthesia PT/OT Home meds as appropriate GI prophylaxis: Protonix 40mg PO at HS DVT prophylaxis: SCDs to bilateral lower extremities Monitor vital signs and address as appropriate Further recommendations pending patients clinical course Discontinue urinary catheter to ensure patient can void without difficulty before discharging her home Anticipate transfer to oral steroids tomorrow and discharge home. Patient will then follow up outpatient with Dr. Chowdhury and Dr. Branch Nurse practitioner note has been reviewed by physician. Signing provider agrees with the documented findings, assessment, and plan of care.
--- NOTE | 2018-03-14 11:55 | P.PCN ---
Date of Procedure: 03/14/18 Surgeon: Gama Bocanegra Pathology: none sent Condition: stable Disposition: PACU Description of Procedure: PREOPERATIVE DIAGNOSIS: 1-Lumbar spinal stenosis POSTOPERATIVE DIAGNOSIS: 1-Lumbar spinal stenosis PROCEDURE 1. Lumbar epidural steroid injection under fluoroscopic guidance at the L5-S1 level. 2. Lumbar epidurogram. ANESTHESIA: Local with 1% lidocaine; IV sedation with Versed/fentanyl. EBL: Minimal PROCEDURE INDICATION: This is a 72-year-old female patient with low back pain and radiculitis symptoms unresponsive to conservative treatment, admitted to the hospital for intractable back and leg pain and MRI proven radiculopathy, and not a good surgical candidate at this time per Dr. Chowdhury. Fluoroscopy was used to optimize visualization of the needle placement and to maximize safety. PROCEDURE DESCRIPTION / TECHNIQUE: The patient was seen and identified in the preoperative area. Risks, benefits, complications, and alternatives were discussed with the patient, including but not limited to bleeding, infection, nerve damage, allergic reactions to medications, and incomplete pain relief. The patient agreed to proceed with the procedure and signed the consent after all questions were answered. IV was continued and vital signs were stable. Patient was taken to the OR and time out was completed to confirm patient position, procedure, laterality of pain, and allergies. The patient was placed in the prone position on procedure table and a pillow was placed under the abdomen to reduce lumbar lordosis. The lumbosacral area was prepped and draped in the usual sterile fashion. Critical pause was taken. Vital signs were closely monitored during the procedure. Conscious sedation was used during the procedure to decrease patients anxiety. Using anterior-posterior fluoroscopy, the L5-S1 interlaminar space was identified and the skin over this site was marked and then infiltrated with 1% lidocaine subcutaneously in a right paramedian fashion. Subsequently, a 20- gauge 3.5-inch Tuohy epidural needle was inserted and advanced toward the epidural space using the Loss of resistance technique and guided by AP and lateral fluoroscopy. The correct needle position in the epidural space was verified with the injection of 2 mL of the water soluble contrast dye Isovue 200 contrast and observing an excellent epidurogram with the epidural spread of the dye, after negative aspiration for blood and CSF and in the absence of paresthesias. Again after negative aspiration, a 6 ml mixture containing 40 mg of Depo Medrol and 3 ml of preservative free Normal Saline, and 2 ml of preservative free lidocaine 1% solution was injected and a washout of epidurogram was seen. Needle was withdrawn intact, skin was cleansed, and bandages were applied. COMPLICATIONS: None COMMENTS: DISPOSITION / PLANS: The patient was placed in a supine position and transferred to the recovery area in a stable condition for observation. There was no evidence of lower extremity motor or sensory deficit after the procedure. Patient was discharged from the recovery room after meeting discharge criteria. She will return to the care of the hospitalists on the regular medical floor and will return to the care of Dr. Branch in the outpatient setting after discharge.
--- NOTE | 2018-03-14 12:14 | FL ---
EXAMINATION TYPE: FL guided pain mgmt statistic DATE OF EXAM: 03/14/2018 COMPARISON: NONE HISTORY: Lumbar back pain TECHNIQUE: Fluoroscopy. FINDINGS/IMPRESSION: Fluoroscopic guidance was provided during procedure performed by Dr. Chowdhury. A total of 7 seconds of fluoroscopic time was utilized during the procedure and 3 spot images was acqui red demonstrating localization of the lumbosacral spine.
[2018-03-14 12:29] LABS: Glucose,Whole Blood 125 mg/dL (75-99)
--- NOTE | 2018-03-14 12:43 | P.PN ---
Progress Note - Text Progress Note Date: 03/14/18 The patient is seen and examined today at bedside she is comfortable and eating her lunch. She had an epidural steroid injection less than an hour ago that she says is gone well. She says her pain is somewhat better since her hospitalization she is not sure if the epidural is made any change yet. She has not yet been up out of bed with therapy. On exam she is alert and oriented 3. She is no acute distress. She has sustained dorsal flexion plantar flexion and EHL intact. She is able to lift her legs up off the bed independently. There is no pain at her hips. Her thighs Soft nontender. Her MRI was done yesterday and I was able to review the report and the images. Assessment and plan Severe spinal stenosis L4 5 Degenerative disc disease L3 4 L4 5 and L5-S1 with stenosis L3 4 and L5-S1 as well Intractable low back pain Facet arthrosis Limited ability to ambulate Postoperative day 0 status post epidural steroid injection with interventional pain management The patient has severe spinal stenosis and had acute exacerbation of her low back with inability and great intractable pain. I would like to see how she does now that she has had an epidural steroid injection and some IV steroid medications to see if this alleviates some of her symptoms when she tries to mobilize. We will have physical therapy try to get her up out of bed today to ambulate. If she is having improvement any she is stable and safe on her feet it is okay for her to be discharged home from an orthopedic standpoint. I think the patient should've close follow-up with Dr. Branch who she has been seeing for interventional pain management on an outpatient basis and should see him next week as scheduled. The patient may be a candidate for surgical intervention for decompression with possible fusion at her lumbar spine if conservative measures were to fail. I discussed this with her and her daughter and we can follow-up with her an outpatient basis.
[2018-03-14 13:37] LABS: Hemoglobin A1C 5.5 % (4.0-6.0)
[2018-03-14] MEDS: methylPREDNISolone SOD SUCCI 40 MG/ML 1 ML VIAL IV SCH ×2 (17:02→23:28)
[2018-03-14 17:25] LABS: Glucose,Whole Blood 104 mg/dL (75-99)
[2018-03-14] MEDS: clonazePAM 1 MG TAB PO SCH ×2 (17:38→21:12)
[2018-03-14 19:52] LABS: Glucose,Whole Blood 157 mg/dL (75-99)
[2018-03-14] MEDS: PANTOPRAZOLE 40 MG TABLET PO SCH (20:31)
[2018-03-14] MEDS: CYCLOBENZAPRINE 10 MG TAB PO SCH (20:32)
[2018-03-15 05:20] VITALS: BP 128/79; PULSE 117; RESP 18; TEMP 98.1
[2018-03-15] MEDS: SODIUM CHLORIDE 0.9% 1,000 ML IV SCH (05:52)
[2018-03-15] MEDS: LEVOTHYROXINE 75 MCG TAB PO SCH (05:52)
[2018-03-15 07:15] LABS: Glucose,Whole Blood 101 mg/dL (75-99)
[2018-03-15] MEDS: methylPREDNISolone SOD SUCCI 40 MG/ML 1 ML VIAL IV SCH (08:04)
[2018-03-15] MEDS: ASPIRIN 81 MG PO SCH (08:05)
[2018-03-15] MEDS: ATORVASTATIN 40 MG TAB PO SCH (08:05)
[2018-03-15] MEDS: carBAMazepine 200 MG TAB PO SCH (08:06)
[2018-03-15] MEDS: DOCUSATE 100 MG CAP PO SCH (08:08)
[2018-03-15] MEDS: GABAPENTIN 300 MG CAP PO SCH (08:08)
[2018-03-15] MEDS: HYDROCHLOROTHIAZIDE 25 MG TAB PO SCH (08:08)
[2018-03-15] MEDS: MELOXICAM 7.5 MG TAB PO SCH (08:10)
[2018-03-15] MEDS: risperiDONE 2 MG TAB PO SCH (08:12)
[2018-03-15] MEDS: clonazePAM 1 MG TAB PO SCH (08:13)
[2018-03-15] MEDS: INSULIN ASPART 100 UNIT/ML 1 ML 10 ML VIAL SQ SCH (08:24)
--- NOTE | 2018-03-15 08:49 | P.DS ---
Providers Date of admission: 03/12/18 18:16 Expected date of discharge: 03/15/18 Attending physician: Rod Morgan Consults: 03/12/18 18:16 Consult Physician Stat Consulting Provider: Dru Chowdhury Consult Reason/Comments: Intractable back pain. Urinary retention Do you want consulting provider notified?: Already Contacted 03/13/18 08:21 Consult Physician Urgent Consulting Provider: Jasper Garza Consult Reason/Comments: Intractable low back pain with lower extremity radiculopathy Do you want consulting provider notified?: Yes Primary care physician: Rod Morgan [facility] Course: 72-year-old female who presented to the emergency room with a chief complaint of severe back pain. The patient does have a history of chronic lower back pain but states it has worsened in severity since November. She states over the last few days her pain has been so severe she has been unable to ambulate. She also reports difficulty with urination and inability to start her stream. The patient reports a history of facet block injections x [address] Branch. She reports the last one was approximately two years ago. She was seen by Dr. Branch on Tuesday and had requested a third injection but was able to have it completed due to insurance reasons per patients daughter. She was started on PO steroids and Neurontin by Dr. Branch. Patient states her pain was so severe yesterday she was unable to ambulate at all. EMS was called and patient was brought to [facility] for further evaluation. The patient has a history of chronic low back pain, hyperlipidemia, hypertension , and gastroesophageal reflux disease. She also has a history of anxiety, bipolar, and depression. Surgical history includes bilateral hip replacements, right foot surgery with plate and screws, Cholecystectomy, and cataract surgery CT lumbar spine: Mild spinal stenosis at L3-4 due to facet arthropathy and mild posterior disc bulging. Moderately severe spinal stenosis at L4-5 due to facet arthropathy and posterior disc bulging. No fractures were visualized. Laboratory data: WBC 6.9. Hemoglobin 13.9. Platelet count 335. Sodium 131. Potassium 3.7. Chloride 93. BUN 18. Creatinine 0.60. Glucose 100. Urinalysis was unremarkable The patient was seen and evaluated by Dr. Chowdhury who did not recommend surgical intervention at this time. Pain management was recommended. Anesthesia was consulted and the patient underwent an epidural injection on 03/14/2018. The patient's pain has been controlled since that time. The patient originally had a urinary catheter inserted due to retention and difficulty initiating her stream which has since been discontinued and patient states she has been voiding without difficulty. The patient was deemed stable for discharge per Dr. Morgan. She is to follow up on an outpatient basis with Dr. Morgan and Dr. Chowdhury. She will also follow up with Dr. Branch for further injections. DISCHARGE DIAGNOSIS: Acute on chronic lumbar back pain, Intractable pain, s/p epidural steroid injection, improved at time of discharge Urinary retention and difficulty initiating urinary stream, secondary to above, resolved at time of discharge Spinal stenosis of L3-4 and L4-5 Degenerative disc disease Hypertension Hyperlipidemia Hypothyroidism Generalized anxiety disorder Bipolar disorder Mild hyponatremia, NA 131 on admission, resolved Nurse practitioner note has been reviewed by physician. Signing provider agrees with the documented findings, assessment, and plan of care. Patient Condition at Discharge: Stable Plan - Discharge Summary New Discharge Prescriptions: New predniSONE See Taper PO DIRECTED #30 tab Continue Omeprazole 20 mg PO HS Meloxicam [Mobic] 7.5 mg PO BID Cyclobenzaprine [Flexeril] 10 mg PO HS risperiDONE [RisperDAL] 2 mg PO BID Simvastatin [Zocor] 80 mg PO DAILY Levothyroxine Sodium [Synthroid] 75 mcg PO DAILY Hydrochlorothiazide [Hydrodiuril] 25 mg PO DAILY carBAMazepine [Carbatrol] 400 mg PO Q12H Gabapentin [Neurontin] 300 mg PO BID clonazePAM [KlonoPIN] 1 mg PO QID Lactulose 10 gm PO DAILY Docusate [Colace] 100 mg PO HS Calcium Carb-Vit D 500Mg-200Un [Oscal 500+D] 1 tab PO BID Alendronate Sodium [Fosamax] 35 mg PO Q7D Aspirin 81 mg PO DAILY Discontinued methylPREDNISolone Dose Pack [Medrol Dose Pack] See Taper PO DAILY Discharge Medication List Cyclobenzaprine [Flexeril] 10 mg PO HS 04/11/16 [History] Hydrochlorothiazide [Hydrodiuril] 25 mg PO DAILY 04/11/16 [History] Levothyroxine Sodium [Synthroid] 75 mcg PO DAILY 04/11/16 [History] Meloxicam [Mobic] 7.5 mg PO BID 04/11/16 [History] Omeprazole 20 mg PO HS 04/11/16 [History] Simvastatin [Zocor] 80 mg PO DAILY 04/11/16 [History] risperiDONE [RisperDAL] 2 mg PO BID 04/11/16 [History] carBAMazepine [Carbatrol] 400 mg PO Q12H 03/07/17 [History] Gabapentin [Neurontin] 300 mg PO BID 03/12/18 [History] Alendronate Sodium [Fosamax] 35 mg PO Q7D 03/13/18 [History] Calcium Carb-Vit D 500Mg-200Un [Oscal 500+D] 1 tab PO BID 03/13/18 [History] Docusate [Colace] 100 mg PO HS 03/13/18 [History] Lactulose 10 gm PO DAILY 03/13/18 [History] clonazePAM [KlonoPIN] 1 mg PO QID 03/13/18 [History] Aspirin 81 mg PO DAILY 03/14/18 [History] predniSONE See Taper PO DIRECTED #30 tab 03/15/18 [Rx] Follow up Appointment(s)/Referral(s): Dru Chowdhury DO [Doctor of Osteopathic Medicine] - 2 Weeks Rod Morgan MD [Primary Care Provider] - 1-2 days Chava Branch DO [Doctor of Osteopathic Medicine] - 1 Week Activity/Diet/Wound Care/Special Instructions: Okay to mobilize and ambulate to tolerance. Avoid heavy or rigorous activity. No repetitive bending twisting or lifting. Discharge Disposition: HOME SELF-CARE
[2018-03-15] MEDS ORDERED: LACTULOSE 20 GM/30 ML CUP PO SCH (09:00)
[2018-03-15 09:29] LABS: ALT 40 U/L (9-52); AST 19 U/L (14-36); Albumin 3.2 g/dL (3.5-5.0); Alkaline Phosphatase 109 U/L (38-126); Anion Gap 12 mmol/L; Blood Urea Nitrogen 20 mg/dL (7-17); Calcium 8.8 mg/dL (8.4-10.2); Carbon Dioxide 22 mmol/L (22-30); Chloride 99 mmol/L (98-107); Glucose 222 mg/dL (74-99); Magnesium 1.8 mg/dL (1.6-2.3); Potassium 3.9 mmol/L (3.5-5.1); Sodium 133 mmol/L (137-145); Total Bilirubin 0.2 mg/dL (0.2-1.3); Total Protein 5.6 g/dL (6.3-8.2)
== END 2018-03-15 10:40 | disposition home or self-care (01) ==
LOC: EC 14:45 → 5MS5E 18:16 → INTOOBSV 18:16
PROVIDERS: ADMIT Family Medicine; ATTEND Family Medicine
DX: G89.29 Other chronic pain (principal); M54.5 Low back pain; R33.9 Retention of urine, unspecified; M48.061 Spinal stenosis, lumbar region without neurogenic claudication; M51.16 Intervertebral disc disorders with radiculopathy, lumbar region; I10 Essential (primary) hypertension; E78.5 Hyperlipidemia, unspecified; E03.9 Hypothyroidism, unspecified; F41.1 Generalized anxiety disorder; F31.9 Bipolar disorder, unspecified; E87.1 Hypo-osmolality and hyponatremia; K21.9 Gastro-esophageal reflux disease without esophagitis; M47.9 Spondylosis, unspecified; Z96.643 Presence of artificial hip joint, bilateral; Z90.49 Acquired absence of other specified parts of digestive tract; M46.90 Unspecified inflammatory spondylopathy, site unspecified; Z87.891 Personal history of nicotine dependence; Z79.899 Other long term (current) drug therapy; Z79.83 Long term (current) use of bisphosphonates; Z79.890 Hormone replacement therapy; Z79.1 Long term (current) use of non-steroidal anti-inflammatories (NSAID); Z79.52 Long term (current) use of systemic steroids; Z79.82 Long term (current) use of aspirin; Z88.5 Allergy status to narcotic agent; Z74.01 Bed confinement status
CPT/HCPCS: 99285; 96374 ×2; 96375 ×3; 96361 ×4; 96376 ×2; 51798; 36415; 97162; 80053 ×3; 80048; 83735 ×3; 85025; 81003; 83036; 72131; 72148; 62323; G0378 ×4; J2250; J1030; J2360; J2920 ×2; J2930 ×3; J2270 ×3; Q9966; 72195

== ENCOUNTER 2018-03-16 08:48 | Observation (INO) | payer MEDICARE, OTHER ==
[2018-03-16] MEDS ORDERED: ONDANSETRON 4 MG/2 ML VIAL IVP STA (10:11)
[2018-03-16] MEDS ORDERED: MORPHINE SULFATE 2 MG/ML SYRINGE IVP STA (10:11)
[2018-03-16] MEDS ORDERED: ONDANSETRON 4 MG/2 ML VIAL IVP PRN (10:52)
[2018-03-16] MEDS ORDERED: NALOXONE 0.4 MG/ML 1 ML VIAL IV PRN (10:52)
--- NOTE | 2018-03-16 10:52 | ED ---
Back Pain HPI - General Chief Complaint: Back Pain/Injury Stated Complaint: back pain Time Seen by Provider: 03/16/18 08:56 Source: patient, RN notes reviewed Limitations: no limitations - History of Present Illness Initial Comments: 72-year-old female presents emergency department for back pain. Patient was just discharged from the hospital yesterday. Patient had epidural injection and MRI of her back while inpatient. Patient states that she went home on prednisone and states that she cannot tolerate the pain. She states she can barely ambulate secondary to it. Daughter brings her back to the ER because of difficulty and bleeding and unable to take care of herself. Patient denies any bowel bladder incontinence or retention. She did have some urinary retention on her prior visit. - Related Data Home Medications Medication Instructions Recorded Confirmed Cyclobenzaprine [Flexeril] 10 mg PO HS 04/11/16 03/16/18 Hydrochlorothiazide [Hydrodiuril] 25 mg PO DAILY 04/11/16 03/16/18 Levothyroxine Sodium [Synthroid] 75 mcg PO DAILY 04/11/16 03/16/18 Meloxicam [Mobic] 7.5 mg PO BID 04/11/16 03/16/18 Omeprazole 20 mg PO HS 04/11/16 03/16/18 Simvastatin [Zocor] 80 mg PO DAILY 04/11/16 03/16/18 risperiDONE [RisperDAL] 2 mg PO BID 04/11/16 03/16/18 carBAMazepine [Carbatrol] 400 mg PO Q12H 03/07/17 03/16/18 Aspirin 81 mg PO DAILY 03/14/18 03/16/18 clonazePAM [KlonoPIN] 0.5 mg PO QID 03/16/18 03/16/18 Allergies Allergy/AdvReac Type Severity Reaction Status Date / Time hydrocodone [From [place]] Allergy Unknown Verified 03/16/18 09:29 Review of Systems ROS Statement: Those systems with pertinent positive or pertinent negative responses have been documented in the HPI. ROS Other: All systems not noted in ROS Statement are negative. Past Medical History Past Medical History: GERD/Reflux, Hyperlipidemia, Hypertension, Thyroid Disorder History of Any Multi-Drug Resistant Organisms: None Reported Past Surgical History: Cholecystectomy, Orthopedic Surgery Additional Past Surgical History / Comment(s): cataract surgery, cyst removal left breast. Past Anesthesia/Blood Transfusion Reactions: No Reported Reaction Past Psychological History: Anxiety, Bipolar, Depression Smoking Status: Former smoker Past Alcohol Use History: None Reported Past Drug Use History: None Reported - Past Family History Mother Family Medical History: No Reported History Father Family Medical History: No Reported History General Exam Limitations: no limitations General appearance: alert, in no apparent distress Respiratory exam: Present: normal lung sounds bilaterally. Absent: respiratory distress, wheezes, rales, rhonchi, stridor Cardiovascular Exam: Present: regular rate, normal rhythm, normal heart sounds. Absent: systolic murmur, diastolic murmur, rubs, gallop, clicks GI/Abdominal exam: Present: soft, normal bowel sounds. Absent: distended, tenderness, guarding, rebound, rigid Extremities exam: Present: normal inspection, full ROM, normal capillary refill. Absent: tenderness, pedal edema, joint swelling, calf tenderness Back exam: Present: normal inspection, tenderness, paraspinal tenderness, vertebral tenderness. Absent: full ROM Course Vital Signs 03/16/18 03/16/18 08:54 08:59 Temperature 98.3 F Pulse Rate 109 H Respiratory 18 22 Rate Blood Pressure 151/84 O2 Sat by Pulse 98 Oximetry Medical Decision Making - Medical Decision Making 72-year-old female presented for back pain. Dr. Barboza is covering for Dr. Morgan who accepts the admission for pain control and possible rehab for placement. Disposition Clinical Impression: Intractable back pain, Decreased ambulation status Disposition: ADMITTED IP TO THIS [facility] Condition: Stable Referrals: Rod Morgan MD [Primary Care Provider] - 1-2 days
--- NOTE | 2018-03-16 14:57 | P.HPIM ---
History of Present Illness H&P Date: 03/16/18 (Patient seen eval reexamined while covering for Dr. Morgan) Chief Complaint: Severe low back pain 72-year-old female with the history of bipolar disorder depression as well as the dyslipidemia hypothyroidism is postop day #2 of the epidural injection by spine surgery was discharged home yesterday however due to severe degree of pain predominantly in the lower back came into the hospital patient was also complaining that he she couldn't stand up or walk however over here the severity of pain has improved significantly from 10-6 now in addition patient able to get up from the bed to the bedside commode she denies any bowel or bladder dysfunction denies any incontinence passing urine adequately have good sensation in the lower extremity denies any weakness in the lower extremity denies any numbness unable to stand at home was predominantly because of the back pain Review of Systems All systems: negative Past Medical History Past Medical History: GERD/Reflux, Hyperlipidemia, Hypertension, Thyroid Disorder Additional Past Medical History / Comment(s): Pt recently admitted to [facility] on with severe low back pain with difficulty walking and urinating. She received an lumbar epidural injection on 03/14/18. Other hx; Chronic low back pain which has increased since November 2017, spinal stenosis L3-L4/L4-L5, DDD , hypothyroid. History of Any Multi-Drug Resistant Organisms: None Reported Past Surgical History: Cholecystectomy, Orthopedic Surgery Additional Past Surgical History / Comment(s): Bilateral cataract surgery, benign cyst removal left breast, bilateral breast fibrotic tissue removed, facet blocks, bilateral total hip arthroplasties, R foot with plate/screws, D&C hysteroscopy, gum surgery. Past Anesthesia/Blood Transfusion Reactions: No Reported Reaction Smoking Status: Former smoker - Past Family History Mother Family Medical History: Skin Disorder Additional Family Medical History / Comment(s): Mother had psoriasis. She lived to be 86yrs. old. Father Family Medical History: No Reported History Additional Family Medical History / Comment(s): Father had a brain injury and had to have a plate placed. He later from his brain swelling/increasing pressure. Medications and Allergies Home Medications Medication Instructions Recorded Confirmed Type Cyclobenzaprine [Flexeril] 10 mg PO HS 04/11/16 03/16/18 History Hydrochlorothiazide [Hydrodiuril] 25 mg PO DAILY 04/11/16 03/16/18 History Levothyroxine Sodium [Synthroid] 75 mcg PO DAILY 04/11/16 03/16/18 History Meloxicam [Mobic] 7.5 mg PO BID 04/11/16 03/16/18 History Omeprazole 20 mg PO HS 04/11/16 03/16/18 History Simvastatin [Zocor] 80 mg PO DAILY 04/11/16 03/16/18 History risperiDONE [RisperDAL] 2 mg PO BID 04/11/16 03/16/18 History carBAMazepine [Carbatrol] 400 mg PO Q12H 03/07/17 03/16/18 History Aspirin 81 mg PO DAILY 03/14/18 03/16/18 History clonazePAM [KlonoPIN] 0.5 mg PO QID 03/16/18 03/16/18 History Allergies Allergy/AdvReac Type Severity Reaction Status Date / Time hydrocodone [From [place]] Allergy Unknown Verified 03/16/18 09:29 Physical Exam Vitals: Vital Signs Temp Pulse Resp BP Pulse Ox 03/16/18 11:01 97.5 F L 87 18 158/86 95 03/16/18 08:59 22 03/16/18 08:54 98.3 F 109 H 18 151/84 98 Intake and Output 03/15/18 03/16/18 03/16/18 22:59 06:59 14:59 Other: Weight 68.039 kg - Constitutional General appearance: average body habitus, cooperative - EENT Eyes: anicteric sclerae, EOMI, PERRLA, normal appearance ENT: hard of hearing, normal oropharynx Ears: bilateral: normal - Neck Carotids: bilateral: upstroke normal, bruit absent Thyroid: bilateral: normal size - Respiratory Respiratory: bilateral: CTA - Cardiovascular Heart sounds: normal: S1, S2 - Gastrointestinal General gastrointestinal: normal bowel sounds, soft - Integumentary Integumentary: normal, normal turgor - Neurologic Neurologic: CNII-XII intact - Musculoskeletal Musculoskeletal: gait normal, generalized weakness, strength equal bilaterally - Psychiatric Psychiatric: A&O x's 3, appropriate affect, intact judgment & insight Thrombosis Risk Factor Assmnt - Choose All That Apply Any of the Below Risk Factors Present?: Yes Each Factor Represents 1 point: Obesity (BMI >25) Other Risk Factors: Yes Each Risk Factor Represents 2 Points: Age 61-74 years Other congenital or acquired thrombophilia - If yes, enter type in comment: No Thrombosis Risk Factor Assessment Total Risk Factor Score: 3 Thrombosis Risk Factor Assessment Level: Moderate Risk Assessment and Plan Assessment: Intractable low back pain postoperative after epidural History of chronic back pain status post epidural injection postop day #2 Mood disorder depression/bipolar disorder Dyslipidemia Hypothyroidism GERD Generalized anxiety disorder Plan: Pain management Consult the spine surgery Resume home medication Obtain basic labs tomorrow morning Increase activity as tolerated Further recommendations pending plan of care as per clinical response of the patient Time with Patient: Greater than 30
[2018-03-16] MEDS: MORPHINE SULFATE 2 MG/ML SYRINGE IV PRN ×3 (15:17→23:55)
[2018-03-16] MEDS: carBAMazepine 200 MG TAB PO SCH ×2 (16:13→21:02)
[2018-03-16] MEDS: clonazePAM 0.5 MG TAB PO SCH ×2 (18:16→21:48)
[2018-03-16] MEDS: Acetaminophen-Codeine 300-30mg TAB PO PRN ×2 (18:16→21:48)
[2018-03-16] MEDS ORDERED: PANTOPRAZOLE 40 MG TABLET PO SCH (21:00)
[2018-03-16] MEDS ORDERED: CYCLOBENZAPRINE 10 MG TAB PO SCH (21:00)
[2018-03-16] MEDS: MELOXICAM 7.5 MG TAB PO SCH (21:03)
[2018-03-16] MEDS: risperiDONE 2 MG TAB PO SCH (21:03)
--- NOTE | 2018-03-16 21:50 | P.HPOR ---
History of Present Illness H&P Date: 03/16/18 Chief Complaint: Acute low back pain with inability to ambulate Patient is known to our service as we saw her a few days ago in regards the same issue. She is a very pleasant 72-year-old female who has been having severe pain in her low back and into her lower extremities. She says she is unable ambulate and had severe pain. She was recently in the hospital and had similar symptoms. She underwent an epidural steroid injection and was treated with morphine for her symptoms. She feels that she did quite well with her morphine but at home was not able to have her medicine and had increased pain. She was treated as outpatient in the past with Dr. Branch who had performed some facet blocks and possible rhizotomy. She feels that this may good improvement of her symptoms in the past. She does not feel that the epidural steroid injection that she had 2 days ago made much difference for her. She is somewhat of a poor historian and she is able to answer most questions appropriately but she does not recall her hospitalization very well. She does not have family with her bedside currently. She denies any specific weakness in her lower extremity. She denies any fevers chills. Review of Systems As per HPI. Denies fevers chills night sweats. Denies any recent trauma. Her pain is family at her low back and toward her lower extremities. She is not having changes in bowel bladder function. She does not feel that the epidural steroid injection gave her significant benefit. She feels as though her facet injections the past seem to have helped. Past Medical History Past Medical History: GERD/Reflux, Hyperlipidemia, Hypertension, Thyroid Disorder Additional Past Medical History / Comment(s): Pt recently admitted to [facility] on with severe low back pain with difficulty walking and urinating. She received an lumbar epidural injection on 03/14/18. Other hx; Chronic low back pain which has increased since November 2017, spinal stenosis L3-L4/L4-L5, DDD , hypothyroid. History of Any Multi-Drug Resistant Organisms: None Reported Past Surgical History: Cholecystectomy, Orthopedic Surgery Additional Past Surgical History / Comment(s): Bilateral cataract surgery, benign cyst removal left breast, bilateral breast fibrotic tissue removed, facet blocks, bilateral total hip arthroplasties, R foot with plate/screws, D&C hysteroscopy, gum surgery. Past Anesthesia/Blood Transfusion Reactions: No Reported Reaction Smoking Status: Former smoker - Past Family History Mother Family Medical History: Skin Disorder Additional Family Medical History / Comment(s): Mother had psoriasis. She lived to be 86yrs. old. Father Family Medical History: No Reported History Additional Family Medical History / Comment(s): Father had a brain injury and had to have a plate placed. He later from his brain swelling/increasing pressure. Medications and Allergies Home Medications Medication Instructions Recorded Confirmed Type Cyclobenzaprine [Flexeril] 10 mg PO HS 04/11/16 03/16/18 History Hydrochlorothiazide [Hydrodiuril] 25 mg PO DAILY 04/11/16 03/16/18 History Levothyroxine Sodium [Synthroid] 75 mcg PO DAILY 04/11/16 03/16/18 History Meloxicam [Mobic] 7.5 mg PO BID 04/11/16 03/16/18 History Omeprazole 20 mg PO HS 04/11/16 03/16/18 History Simvastatin [Zocor] 80 mg PO DAILY 04/11/16 03/16/18 History risperiDONE [RisperDAL] 2 mg PO BID 04/11/16 03/16/18 History carBAMazepine [Carbatrol] 400 mg PO Q12H 03/07/17 03/16/18 History Aspirin 81 mg PO DAILY 03/14/18 03/16/18 History clonazePAM [KlonoPIN] 0.5 mg PO QID 03/16/18 03/16/18 History Allergies Allergy/AdvReac Type Severity Reaction Status Date / Time hydrocodone [From [place]] Allergy Unknown Verified 03/16/18 09:29 Physical Examination Osteopathic Statement: *. No significant issues noted on an osteopathic structural exam other than those noted in the History and Physical/Consult. - L Spine: dermatomal strength & reflexes bilateral Strength: hip flexion: 5/5 (Lower extremities she is able to lift her legs up off the bed independently. She is X able to sit up quite well in bed with minimal assistance this evening. Her back is nontender over the midline though she does have some paravertebral spasm. She has sustained dorsal flexion plantarflexion and EHL intact with 5 over 5 strength. There is no pain with internal/external rotation of her legs. She has negative straight leg raise this evening bilaterally. Her abdomen soft nontender. Chest is good excursion deep inspiration and expiration) Results - Diagnostic results Lumbar MRI with/without contrast: report reviewed, image reviewed (I again reviewed her computed tomography scan and her lumbar MRI for her lumbar spine that was done just last week. She has significant disc degeneration with severe stenosis L4 5 centrally and at the bilateral neuroforamen she has significant moderate to severe stenosis L3 4 as well. She has moderate stenosis L2-3 and L5-S1. She has degenerative disc disease and some asymmetric disc degeneration with some mild degenerative scoliosis. She has facet arthrosis as well.) CT Scan - lumbar: report reviewed, image reviewed Assessment and Plan Assessment: Acute on chronic low back pain Severe spinal stenosis L3 4 L4 5 Moderate spinal stenosis L2-3 L5-S1 Degenerative scoliosis Degenerative disc disease Facet arthrosis Lower extremity radiculopathy Inability to ambulate Plan: Acute on chronic low back pain Severe spinal stenosis L3 4 L4 5 Moderate spinal stenosis L2-3 L5-S1 Degenerative scoliosis Degenerative disc disease Facet arthrosis Lower extremity radiculopathy Inability to ambulate The patient has a number of significant issues at her lumbar spine causing her pain. Her most severe levels are at L3 4 and L4 5 level. It does not seem that she had any significant lasting improvement with her recent epidural steroid injection. She has history of bipolar and is somewhat a poor historian so it is somewhat difficult to discuss the ultimate treatment options with her. Return discussed the possibility of further injections and the possibility of trying facet injections again as her symptoms are primarily that in her back pain. She feels she had some improvement with her facet injections injections with Dr. Young and would like to try to get back to have facet ablations. The hospital will not allow outside powder coat painter to perform procedures in the hospital. We can have the anesthesia group who performs pain management procedures see her again. Perhaps they can consider facet blocks again in to see if that'll alleviate some of her symptoms. I again discussed the possibility of surgical intervention with her. With the amount of severe stenosis that she has at L3 4 and L4 5 I think that we have to consider decompression with stabilization if we were to treat her surgically. Certainly this would be a significant procedure for her and is difficult to determine how she how well she would do given her overall medical status and deconditioning. I tried to discuss with this with her and I will discuss it further when her family is with her. For now we will reconsult interventional pain management to discuss her treatment options and to give recommendations and treatment for medical management. She may need residential facility post discharge and will have case management see her as well.
[2018-03-17] MEDS: MORPHINE SULFATE 2 MG/ML SYRINGE IV PRN (03:58)
[2018-03-17] MEDS: Acetaminophen-Codeine 300-30mg TAB PO PRN ×2 (05:43→11:45)
[2018-03-17 06:16] VITALS: BP 167/91; PULSE 82; RESP 18; TEMP 97.5
[2018-03-17] MEDS ORDERED: LEVOTHYROXINE 75 MCG TAB PO SCH (06:30)
[2018-03-17] MEDS ORDERED: traMADol 50 MG TAB PO PRN (08:44)
[2018-03-17] MEDS: clonazePAM 0.5 MG TAB PO SCH ×2 (08:53→11:45)
[2018-03-17] MEDS: risperiDONE 2 MG TAB PO SCH (08:53)
[2018-03-17] MEDS: MELOXICAM 7.5 MG TAB PO SCH (08:53)
[2018-03-17] MEDS: carBAMazepine 200 MG TAB PO SCH (08:55)
[2018-03-17] MEDS ORDERED: HYDROCHLOROTHIAZIDE 25 MG TAB PO SCH (09:00)
[2018-03-17] MEDS ORDERED: ATORVASTATIN 40 MG TAB PO SCH (09:00)
[2018-03-17] MEDS ORDERED: ASPIRIN 81 MG PO SCH (09:00)
--- NOTE | 2018-03-17 14:41 | P.DS ---
Providers Date of admission: 03/16/18 09:30 Expected date of discharge: 03/17/18 Attending physician: Gregory Coughlin Consults: 03/16/18 10:53 Consult Physician Urgent Consulting Provider: Dru Chowdhury Consult Reason/Comments: Lumbar back pain Do you want consulting provider notified?: Yes 03/16/18 21:51 Consult Physician Urgent Consulting Provider: Jasper Garza Consult Reason/Comments: Possible repeat epidural steroid injection versus facet injections Do you want consulting provider notified?: Yes Primary care physician: [facility] Course: 72-year-old female with the history of bipolar disorder depression as well as the dyslipidemia hypothyroidism is postop day #2 of the epidural injection by spine surgery was discharged home yesterday however due to severe degree of pain predominantly in the lower back came into the hospital patient was also complaining that he she couldn't stand up or walk however over here the severity of pain has improved significantly from 10-6 now in addition patient able to get up from the bed to the bedside commode she denies any bowel or bladder dysfunction denies any incontinence passing urine adequately have good sensation in the lower extremity denies any weakness in the lower extremity denies any numbness unable to stand at home was predominantly because of the back pain 03/17/2018, patient seen eval examined during the rounds clinically patient is doing slightly better she has issues and problem associated morphine as she was very somnolent however tolerating Tylenol No. 3 and Ultram very well currently she is using Tylenol No. 3 to 3 times a day along with TRAM 3-4 times a day patient has an appointment to see Dr. Branch, patient has been evaluated by the spine surgery no active intervention has been recommended except further evaluation and rehab however patient is not a candidate for rehab she is now being discharged to follow with primary service and Dr. Branch next week On examination her vitals include Blood pressure is 1 6791 respirator impulsivity 2 temperature 90.7 saturation 94 % room air Constitutional General appearance: average body habitus, cooperative - EENT Eyes: anicteric sclerae, EOMI, PERRLA, normal appearance ENT: hard of hearing, normal oropharynx Ears: bilateral: normal - Neck Carotids: bilateral: upstroke normal, bruit absent Thyroid: bilateral: normal size - Respiratory Respiratory: bilateral: CTA - Cardiovascular Heart sounds: normal: S1, S2 - Gastrointestinal General gastrointestinal: normal bowel sounds, soft - Integumentary Integumentary: normal, normal turgor - Neurologic Neurologic: CNII-XII intact - Musculoskeletal Musculoskeletal: gait normal, generalized weakness, strength equal bilaterally - Psychiatric Psychiatric: A&O x's 3, appropriate affect, intact judgment & insight Patient Condition at Discharge: Stable Plan - Discharge Summary Discharge Rx Participant: No New Discharge Prescriptions: No Action Omeprazole 20 mg PO HS Meloxicam [Mobic] 7.5 mg PO BID Cyclobenzaprine [Flexeril] 10 mg PO HS risperiDONE [RisperDAL] 2 mg PO BID Simvastatin [Zocor] 80 mg PO DAILY Levothyroxine Sodium [Synthroid] 75 mcg PO DAILY Hydrochlorothiazide [Hydrodiuril] 25 mg PO DAILY carBAMazepine [Carbatrol] 400 mg PO Q12H Aspirin 81 mg PO DAILY clonazePAM [KlonoPIN] 0.5 mg PO QID Discharge Medication List Cyclobenzaprine [Flexeril] 10 mg PO HS 04/11/16 [History] Hydrochlorothiazide [Hydrodiuril] 25 mg PO DAILY 04/11/16 [History] Levothyroxine Sodium [Synthroid] 75 mcg PO DAILY 04/11/16 [History] Meloxicam [Mobic] 7.5 mg PO BID 04/11/16 [History] Omeprazole 20 mg PO HS 04/11/16 [History] Simvastatin [Zocor] 80 mg PO DAILY 04/11/16 [History] risperiDONE [RisperDAL] 2 mg PO BID 04/11/16 [History] carBAMazepine [Carbatrol] 400 mg PO Q12H 03/07/17 [History] Aspirin 81 mg PO DAILY 03/14/18 [History] clonazePAM [KlonoPIN] 0.5 mg PO QID 03/16/18 [History] Follow up Appointment(s)/Referral(s): [facility], [NON-STAFF] - 1 Week Rod Morgan MD [Primary Care Provider] - 1-2 days (Patient to call Dr. Morgan's office Tuesday to schedule follow up appointment. The office is closed at time of discharge. ) Chava Branch DO [Doctor of Osteopathic Medicine] - 1 Week Patient Instructions/Handouts: Acetaminophen/Codeine (By mouth), Tramadol (By mouth), Acute Low Back Pain (DC) Activity/Diet/Wound Care/Special Instructions: Diet: Regular Activity: as tolerated with walker
--- NOTE | 2018-03-17 20:19 | P.PAINCN ---
History of Present Illness - Reason for Consult Consult date: 03/17/18 - History of Present Illness This is 72 years old female with a headache history of severe low back pain, patient was seen at [facility] 2 days ago , and pain management services performed lumbar epidural steroid injection, patient was discharged home, in stable condition and she was readmitted yesterday because of intractable pain and an inability to ambulate, she'll complaining of severe intractable pain with radiation to the right lower extremity, she denies any fever or night sweats and there is no change in the bowel movement or urination , but she is complaining that her pain is not controlled with the pain medication she is getting she was getting Tylenol No. 3 every 6-8 hours, and she reported that the pain is constant and increases with any activity, intensity of the pain 8/10 increased to 10 over 10 with any attempt to ambulate , she was readmitted to [facility] and pain management consultation was requested to adjust her pain medication, and to optimize pain control Past Medical History Past Medical History: GERD/Reflux, Hyperlipidemia, Hypertension, Thyroid Disorder Additional Past Medical History / Comment(s): Pt recently admitted to [facility] on with severe low back pain with difficulty walking and urinating. She received an lumbar epidural injection on 03/14/18. Other hx; Chronic low back pain which has increased since November 2017, spinal stenosis L3-L4/L4-L5, DDD , hypothyroid. History of Any Multi-Drug Resistant Organisms: None Reported Past Surgical History: Cholecystectomy, Orthopedic Surgery Additional Past Surgical History / Comment(s): Bilateral cataract surgery, benign cyst removal left breast, bilateral breast fibrotic tissue removed, facet blocks, bilateral total hip arthroplasties, R foot with plate/screws, D&C hysteroscopy, gum surgery. Past Anesthesia/Blood Transfusion Reactions: No Reported Reaction Smoking Status: Former smoker - Past Family History Mother Family Medical History: Skin Disorder Additional Family Medical History / Comment(s): Mother had psoriasis. She lived to be 86yrs. old. Father Family Medical History: No Reported History Additional Family Medical History / Comment(s): Father had a brain injury and had to have a plate placed. He later from his brain swelling/increasing pressure. Medications and Allergies Home Medications Medication Instructions Recorded Confirmed Type Cyclobenzaprine [Flexeril] 10 mg PO HS 04/11/16 03/16/18 History Hydrochlorothiazide [Hydrodiuril] 25 mg PO DAILY 04/11/16 03/16/18 History Levothyroxine Sodium [Synthroid] 75 mcg PO DAILY 04/11/16 03/16/18 History Meloxicam [Mobic] 7.5 mg PO BID 04/11/16 03/16/18 History Omeprazole 20 mg PO HS 04/11/16 03/16/18 History Simvastatin [Zocor] 80 mg PO DAILY 04/11/16 03/16/18 History risperiDONE [RisperDAL] 2 mg PO BID 04/11/16 03/16/18 History carBAMazepine [Carbatrol] 400 mg PO Q12H 03/07/17 03/16/18 History Aspirin 81 mg PO DAILY 03/14/18 03/16/18 History clonazePAM [KlonoPIN] 0.5 mg PO QID 03/16/18 03/16/18 History Allergies Allergy/AdvReac Type Severity Reaction Status Date / Time hydrocodone [From [place]] Allergy Unknown Verified 03/16/18 09:29 Physical Exam Vitals: Vital Signs Temp Pulse Resp BP Pulse Ox 03/17/18 08:00 82 18 03/17/18 06:15 97.5 F L 82 18 167/91 94 L 03/16/18 22:52 16 03/16/18 21:21 97.3 F L 62 16 104/57 96 Intake and Output 03/17/18 03/17/18 03/17/18 06:59 14:59 22:59 Other: # Voids 2 Weight 68.039 kg Physical Examinations : 1-Constitutiona : Cooperative , not in acute distress . 2-HEENT : nech ; supple , no Lymphadenopathy , normal thyroid size . eyes : no ptosis , no icterus , no photophobia . ENT : normal of hearing , normal oropharynx , no Thrush . 3- Respiratory : Chest clear to auscultations Bilaterally , no wheezing , no Rhonchi . 4- Cardiovascular : regular rate and rhythem , S1 , S2 , no S3 , no S4. 5- Gastrointestinal : abdomen soft no tenderness , bowel sounds , no organomegally . 6- Genitourinary : Defferred . 7- neurologic : Cranial nerve II to XII intact , no focal neurological deffecit . 8-psychatric : alert , oriented X 3 , appropriate affect , intact judgment and insight . 9-Lymphatic : no Lymphadenopathy . 10- musculoskeltal : , Lumber spine = normal moter stegnth lower extremities ,thigh and legs .5/5 deep tendon reflexes : normal Knee Jerk , normal ankle Jerk . lumber facet Loading Test positive strait leg raising test positive at 30 degree Right , negative on the left side. Fabere test positive Right and negative Left Results Comments: MRI of the lumbar spine multilevel lumbar degenerative disc disease lumbar facet arthropathy and lumbar spinal stenosis Assessment and Plan Plan: Assessment and plan= acute on chronic severe low back pain with radiation to the lower extremity Lumbar radiculopathic, lumbar degenerative disc disease , lumbar facet arthropathy. Status post lumbar epidural steroid injections done 2 days ago. Current medication is not helping to control her pain I recommend to add Ultram 50 mg every 6 hours when necessary. Patient will follow up with her pain management physician Dr. Branch as an outpatient Time with Patient: Less than 30 PQRS Measure Charge Sheet PQRS Narrative: Smoking Status Former smoker Blood Pressure [Right Arm] 167/91 Blood Pressure 158/86 Pain Intensity [Lower Back] 7 Pain Intensity 5 Pain Scale Used Numeric (1 - 10) Scale Used Numeric (1 - 10) Home Medications: Ambulatory Orders Cyclobenzaprine [Flexeril] 10 mg PO HS 04/11/16 Hydrochlorothiazide [Hydrodiuril] 25 mg PO DAILY 04/11/16 Levothyroxine Sodium [Synthroid] 75 mcg PO DAILY 04/11/16 Meloxicam [Mobic] 7.5 mg PO BID 04/11/16 Omeprazole 20 mg PO HS 04/11/16 Simvastatin [Zocor] 80 mg PO DAILY 04/11/16 risperiDONE [RisperDAL] 2 mg PO BID 04/11/16 carBAMazepine [Carbatrol] 400 mg PO Q12H 03/07/17 Aspirin 81 mg PO DAILY 03/14/18 clonazePAM [KlonoPIN] 0.5 mg PO QID 03/16/18
== END 2018-03-17 15:35 | disposition home or self-care (01) ==
LOC: EC 08:48 → 5MS5E 09:30
PROVIDERS: ADMIT Internal Medicine Sleep Medicine; ATTEND Internal Medicine Sleep Medicine
DX: M54.5 Low back pain (principal); F31.9 Bipolar disorder, unspecified; E78.5 Hyperlipidemia, unspecified; E03.9 Hypothyroidism, unspecified; K21.9 Gastro-esophageal reflux disease without esophagitis; I10 Essential (primary) hypertension; G89.29 Other chronic pain; M48.061 Spinal stenosis, lumbar region without neurogenic claudication; Z90.49 Acquired absence of other specified parts of digestive tract; Z87.891 Personal history of nicotine dependence; Z79.899 Other long term (current) drug therapy; Z79.890 Hormone replacement therapy; Z79.1 Long term (current) use of non-steroidal anti-inflammatories (NSAID); Z79.82 Long term (current) use of aspirin; Z88.5 Allergy status to narcotic agent; H91.90 Unspecified hearing loss, unspecified ear; E66.9 Obesity, unspecified; Z68.28 Body mass index [BMI] 28.0-28.9, adult; F41.1 Generalized anxiety disorder; M41.80 Other forms of scoliosis, site unspecified; M51.36 Other intervertebral disc degeneration, lumbar region; M47.9 Spondylosis, unspecified; M54.10 Radiculopathy, site unspecified; R51 Headache
CPT/HCPCS: 99284 ×2; 96374 ×2; 96375 ×2; 96376 ×2; 97162; G0378 ×2; J2405; J2270 ×2

== ENCOUNTER → 2018-08-15 | Outpatient (CLI) | payer MEDICARE, OTHER ==
--- NOTE | 2018-08-21 10:09 | MM ---
Reason for exam: screening (asymptomatic). Last mammogram was performed 1 year and 1 month ago. History: Patient is postmenopausal. Benign excisional biopsy of the right breast, July 29, 1998. 2 benign excisional biopsies of the left breast. Physical Findings: A clinical breast exam by your physician is recommended on an annual basis and results should be correlated with mammographic findings. MG 3D Screening Mammo W/Cad Bilateral CC and MLO view(s) were taken. Prior study comparison: July 13, 2017, bilateral MG 3d screening mammo w/cad. April 05, 2016, bilateral MG 3d screening mammo w/cad. There are scattered fibroglandular densities. Asymmetries on the right are unchanged. Stable inferior left breast dermal calcifications. No significant changes when compared with prior studies. ASSESSMENT: Negative, BI-RAD 1 RECOMMENDATION: Routine screening mammogram of both breasts in 1 year.
== END | disposition home or self-care (01) ==
LOC: RADMAMWWP 14:45
PROVIDERS: ATTEND Family Medicine
DX: Z12.31 Encounter for screening mammogram for malignant neoplasm of breast (principal)
CPT/HCPCS: 77063; 77067

== ENCOUNTER → 2019-07-23 | Outpatient (CLI) | payer MEDICARE, OTHER ==
--- NOTE | 2019-07-23 12:04 | MR ---
EXAMINATION TYPE: MR lumbar spine wo con DATE OF EXAM: 07/23/2019 COMPARISON: 03/13/2018 HISTORY: Degeneration of lumbar intervertebral disc TECHNIQUE: T1 and T2 axial and sagittal images of the lumbar spine are submitted. FINDINGS: There is no abnormal signal seen within the visualized spinal cord or paraspinal soft tissu es. There is severe degenerative disc disease with vacuum disc at all levels. Anterior spurring noted and there is a grade 1 anterolisthesis L4 on L5 which is stable. Multilevel facet arthropathy noted. Diffuse heterogeneous marrow signal is nonspecific and may be associated with osteoporosis, correlat e clinically. Stable chronic nodularity left adrenal gland. At T11-T12 and T12-L1 there is sagittal disc bulging. Correlate with thoracic spine MRI as clinically warranted. At L1-2 there is severe degenerative disc disease with circumferential disc bulging and hypertrophic changes of the facets. Neural foramina remain patent and no Canal stenosis. At L2-3 there is severe degenerative disc disease with ligamentum flavum and facet arthropathy. Circu mferential disc bulging results in mild to moderate central stenosis and bilateral foraminal encroach ment. At L3-4 there is severe degenerative disc disease with hypertrophic change of the facets. Correlate f or previous laminectomy on the right. Facet arthropathy is seen and there is bilateral foraminal encr oachment. Mild canal stenosis. At L4-5 there is diffuse broad-based disc bulging with postsurgical changes. Hypertrophic change of t he facets. There is crowding of the nerve roots and evidence of canal stenosis with bilateral foramin al encroachment. At L5-S1 there is severe degenerative disc disease with facet arthropathy and ligamentum flavum hyper trophy and significant bilateral foraminal encroachment and canal stenosis. Finding is similar to the prior exam. IMPRESSION: 1. Severe multilevel degenerative disc disease with multilevel disc bulging including T11-12 and T12- L1. Correlate with thoracic MRI as clinically warranted. 2. Postsurgical changes. 3. Hypertrophic changes and disc bulging contributes to multilevel canal stenosis as discussed above. Most marked findings at L5-S1. 4. Multilevel foraminal encroachment. 5. Crowding of the nerve roots at the L4-L5 level can occasionally be associated with arachnoiditis. Correlate clinically.
== END | disposition home or self-care (01) ==
LOC: RADMRIMAIN 10:43
PROVIDERS: ATTEND Neurological Surgery
DX: M48.061 Spinal stenosis, lumbar region without neurogenic claudication (principal); M51.84 Other intervertebral disc disorders, thoracic region; M51.85 Other intervertebral disc disorders, thoracolumbar region; M51.87 Other intervertebral disc disorders, lumbosacral region; M51.34 Other intervertebral disc degeneration, thoracic region; M51.35 Other intervertebral disc degeneration, thoracolumbar region; Z98.890 Other specified postprocedural states
CPT/HCPCS: 72148

== ENCOUNTER 2019-07-28 17:18 | Emergency (ER) | payer MEDICARE, OTHER ==
[2019-07-28 17:32] VITALS: RESP 18
[2019-07-28 18:27] LABS: Appearance,Urine Clear (Clear); Bilirubin,Urine Negative (Negative); Blood,Urine Negative (Negative); Color,Urine Yellow; Glucose,Urine (UA) Negative (Negative); Ketones,Urine Negative (Negative); Leukocyte Esterase,Urine Negative (Negative); Nitrite,Urine Negative (Negative); PH, Urine 6.5 (5.0-8.0); Protein,Urine Negative (Negative); Specific Gravity,Urine 1.012 (1.001-1.035); Urobilinogen,Urine <2.0 mg/dL (<2.0)
[2019-07-28 18:36] LABS: ALT 27 U/L (9-52); AST 27 U/L (14-36); African American GFR (CKD) >90 (>60 ml/min/1.73 sqM); Albumin 4.2 g/dL (3.5-5.0); Alkaline Phosphatase 182 U/L (38-126); Anion Gap 9 mmol/L; Blood Urea Nitrogen 13 mg/dL (7-17); Calcium 9.5 mg/dL (8.4-10.2); Carbon Dioxide 30 mmol/L (22-30); Chloride 91 mmol/L (98-107); Glucose 88 mg/dL (74-99); Potassium 4.2 mmol/L (3.5-5.1); Sodium 130 mmol/L (137-145); Total Bilirubin 0.2 mg/dL (0.2-1.3); Total Protein 7.4 g/dL (6.3-8.2)
--- NOTE | 2019-07-28 19:06 | CT ---
EXAMINATION TYPE: CT abdomen pelvis w con DATE OF EXAM: 07/28/2019 COMPARISON: None HISTORY: Right rib pain with difficulty urinating. CT DLP: 871.1 mGycm Automated exposure control for dose reduction was used. TECHNIQUE: Helical acquisition of images was performed from the lung bases through the pelvis. CONTRAST: Performed without Oral Contrast and with IV Contrast, patient injected with 100 mL of Isovue 300. FINDINGS: There is coarse interstitial density in the lower lung little. There is no pleural effusion. There is no pericardial effusion. There are clips from cholecystectomy. Liver spleen stomach pancreas appear normal. Bile ducts are not dilated. There is no adrenal mass. Kidneys show satisfactory contrast opacification. There is no hydronephrosi s. Ureters are not dilated. There is no retroperitoneal adenopathy. Bladder distends smoothly. There is metal artifact from bilateral hip prosthesis. There is no inguinal hernia. There are multiple sigm oid diverticula. There is no sign of diverticulitis. Appendix appears normal. There is no mesenteric edema. There is no ascites or free air. There is no sign of a bowel obstructio n. There are spondylotic changes in the lumbar spine. There is disc space narrowing and spur formatio n. Facet joints are intact. There is hypertrophic multilevel facet arthropathy. There is no lumbar co mpression fracture. IMPRESSION: MILD SCARRING AND SUBSEGMENTAL ATELECTASIS AT THE LUNG BASES. NO ACUTE ABNORMALITY WITHIN THE ABDOMEN PELVIS. NORMAL APPENDIX.
[2019-07-28] MEDS ORDERED: KETOROLAC 30 MG/ML 1 ML VIAL IVP STA (19:27)
[2019-07-28] MEDS ORDERED: LIDOCAINE 5% PATCH TOPICAL STA (19:45)
--- NOTE | 2019-07-28 19:49 | ED ---
General Adult HPI - General Chief complaint: Urogenital Stated complaint: Unable to void, RT side flank pain Time Seen by Provider: 07/28/19 17:30 Source: patient Mode of arrival: wheelchair Limitations: no limitations - History of Present Illness Initial comments: The patient is a 74 female with past history bipolar disorder who presents to the emergency department by her daughter. Daughter provides majority of the history. They presents with the patient having difficulty urinating. Daughter reports that this has been going on for the past 3 years. They have had thorough evaluations through their primary care physician including abdominal ultrasounds and laboratory studies. The patient continues to be fixated on having to go to the bathroom. She has urinated once before coming to the emergency department today. Denies dysuria or hematuria. No diarrhea or constipation. No melanotic stools or hematochezia. Denies history of kidney st ones. No recurring urinary tract infections. Denies fevers or chills. No back pain or flank pain. The patient does report to right upper quadrant abdominal pain. She states that she is in physical therapy and had to do upper body stretches yesterday. States that she began having pain with palpation to the area as well as with movement. She has Ultram that she can take at home whenever has pain but didn't want to take it until she was thoroughly evaluated. Denies any shortness breath. No history of DVT or PE. Denies a cardiac history. No pleuritic chest pain. Ripping or tearing sensation to her back. There are no other alleviating, precipitating or modifying factors - Related Data Home Medications Medication Instructions Recorded Confirmed Cyclobenzaprine [Flexeril] 10 mg PO HS 04/11/16 03/16/18 Hydrochlorothiazide [Hydrodiuril] 25 mg PO DAILY 04/11/16 03/16/18 Levothyroxine Sodium [Synthroid] 75 mcg PO DAILY 04/11/16 03/16/18 Meloxicam [Mobic] 7.5 mg PO BID 04/11/16 03/16/18 Omeprazole 20 mg PO HS 04/11/16 03/16/18 Simvastatin [Zocor] 80 mg PO DAILY 04/11/16 03/16/18 risperiDONE [RisperDAL] 2 mg PO BID 04/11/16 03/16/18 carBAMazepine [Carbatrol] 400 mg PO Q12H 03/07/17 03/16/18 Aspirin 81 mg PO DAILY 03/14/18 03/16/18 clonazePAM [KlonoPIN] 0.5 mg PO QID 03/16/18 03/16/18 Allergies Allergy/AdvReac Type Severity Reaction Status Date / Time hydrocodone [From [facility]] AdvReac inreases Verified 07/28/19 17:32 bipolar Review of Systems ROS Statement: Those systems with pertinent positive or pertinent negative responses have been documented in the HPI. ROS Other: All systems not noted in ROS Statement are negative. Past Medical History Past Medical History: GERD/Reflux, Hyperlipidemia, Hypertension, Thyroid Disorder Additional Past Medical History / Comment(s): Pt recently admitted to [facility] on 03/12/18 with severe low back pain with difficulty walking and urinating. She received an lumbar epidural injection on 03/14/18. Other hx; Chronic low back pain which has increased since November 2017, spinal stenosis L3-L4/L4-L5, DDD, hypothyroid. History of Any Multi-Drug Resistant Organisms: None Reported Past Surgical History: Cholecystectomy, Orthopedic Surgery Additional Past Surgical History / Comment(s): Bilateral cataract surgery, benign cyst removal left breast, bilateral breast fibrotic tissue removed, facet blocks, bilateral total hip arthroplasties, R foot with plate/screws, D&C hysteroscopy, gum surgery, back sx Past Anesthesia/Blood Transfusion Reactions: No Reported Reaction Past Psychological History: Anxiety, Bipolar, Depression Smoking Status: Former smoker Past Alcohol Use History: None Reported - Past Family History Mother Family Medical History: Skin Disorder Additional Family Medical History / Comment(s): Mother had psoriasis. She lived to be 86yrs. old. Father Family Medical History: No Reported History Additional Family Medical History / Comment(s): Father had a brain injury and had to have a plate placed. He later from his brain swelling/increasing pressure. General Exam Limitations: no limitations Course Vital Signs 07/28/19 17:29 Temperature 98.2 F Pulse Rate 80 Respiratory 18 Rate Blood Pressure 151/86 O2 Sat by Pulse 94 L Oximetry Medical Decision Making - Medical Decision Making Upon arrival the patient was placed into room 16. A thorough history and physical exam was performed. Daughter is apprehensive to perform a workup as her mother has suffered from difficulty with urination for the past several ye ars. I did recommend laboratory studies and imaging for which the patient did agree to. Sodium was 130, chloride 91. Creatinine is normal at 0.6. Urinalysis is negative CT of the patient's abdomen and pelvis to evaluate for the right upper quadrant pain demonstrates mild scarring and subsegmental atelectasis at the lung bases no acute abnormality within the abdomen and pelvis. No rib fractures seen. We did provide the patient with 15 mg IV Toradol. She is also given a Lidoderm patch. I discussed diagnosis, differential and treatment options. I did offer several medication options austinverito grijalva the daughter at bedside states her mother can only take Ultram because of her other psychiatric medications. She does have enough of this medication at home. The patient will be discharged. She is to use warm compresses to the site. She is to her Frain from physical activity until she has improvement in her pain. She has any new or worsening symptoms she should return to the emergency room. The patient was discharged home in stable condition - Lab Data Result diagrams: 07/28/19 18:20 Lab Results 07/28/19 07/28/19 Range/Units 17:50 18:20 Sodium 130 L (137-145) mmol/L Potassium 4.2 (3.5-5.1) mmol/L Chloride 91 L (98-107) mmol/L Carbon Dioxide 30 (22-30) mmol/L Anion Gap 9 mmol/L BUN 13 (7-17) mg/dL Creatinine 0.60 (0.52-1.04) mg/dL Est GFR (CKD-EPI)AfAm >90 (>60 ml/min/1.73 sqM) Est GFR (CKD-EPI)NonAf 89 (>60 ml/min/1.73 sqM) Glucose 88 (74-99) mg/dL Calcium 9.5 (8.4-10.2) mg/dL Total Bilirubin 0.2 (0.2-1.3) mg/dL AST 27 (14-36) U/L ALT 27 (9-52) U/L Alkaline Phosphatase 182 H (38-126) U/L Total Protein 7.4 (6.3-8.2) g/dL Albumin 4.2 (3.5-5.0) g/dL Urine Color Yellow Urine Appearance Clear (Clear) Urine pH 6.5 (5.0-8.0) Ur Specific [place] 1.012 (1.001-1.035) Urine Protein Negative (Negative) Urine Glucose (UA) Negative (Negative) Urine Ketones Negative (Negative) Urine Blood Negative (Negative) Urine Nitrite Negative (Negative) Urine Bilirubin Negative (Negative) Urine Urobilinogen <2.0 (<2.0) mg/dL Ur Leukocyte Esterase Negative (Negative) Disposition Clinical Impression: Chest wall pain Disposition: HOME SELF-CARE Condition: Stable Instructions (If sedation given, give patient instructions): Chest Wall Pain (ED) Additional Instructions: Please follow-up with your primary care doctor in 2-4 days. Return to the emergency room for any worsening symptoms Is patient prescribed a controlled substance at d/c from ED?: No Referrals: Rod Morgan MD [Primary Care Provider] - 1-2 days Time of Disposition: 19:49
[2019-07-28 20:16] VITALS: BP 143/80; PULSE 82; TEMP 98
== END 2019-07-28 20:16 | disposition home or self-care (01) ==
LOC: EC 17:18
DX: R07.89 Other chest pain (principal); J98.4 Other disorders of lung; J98.11 Atelectasis; R39.198 Other difficulties with micturition; F41.9 Anxiety disorder, unspecified; F31.9 Bipolar disorder, unspecified; K21.9 Gastro-esophageal reflux disease without esophagitis; E78.5 Hyperlipidemia, unspecified; I10 Essential (primary) hypertension; E03.9 Hypothyroidism, unspecified; G89.29 Other chronic pain; M54.5 Low back pain; Z79.890 Hormone replacement therapy; Z79.1 Long term (current) use of non-steroidal anti-inflammatories (NSAID); Z79.82 Long term (current) use of aspirin; Z79.899 Other long term (current) drug therapy; Z88.5 Allergy status to narcotic agent; Z87.891 Personal history of nicotine dependence
CPT/HCPCS: 36415; 80053; 81003; 74177; 99284; 96374; J1885; Q9967

== ENCOUNTER → 2019-10-29 | Outpatient (CLI) | payer MEDICARE, OTHER ==
--- NOTE | 2019-10-30 10:32 | MM ---
Reason for exam: screening (asymptomatic). Last mammogram was performed 1 year and 2 months ago. History: Patient is postmenopausal. Benign excisional biopsy of the right breast, July 29, 1998. 2 benign excisional biopsies of the left breast. Physical Findings: A clinical breast exam by your physician is recommended on an annual basis and results should be correlated with mammographic findings. MG 3D Screening Mammo W/Cad Bilateral CC and MLO view(s) were taken. Prior study comparison: August 15, 2018, bilateral MG 3d screening mammo w/cad. July 13, 2017, bilateral MG 3d screening mammo w/cad. The breast tissue is heterogeneously dense. This may lower the sensitivity of mammography. Finding #1: There is a 6 mm circumscribed round mass located 4-5cm from the nipple in the lower inner quadrant, anterior position of the right breast on MLO 35/56 and CC 78/54. Finding #2: There are typically benign vascular, dystrophic, round, diffuse/scattered and grouped calcifications in both breasts. There is no discrete abnormality. New finding since August 15, 2018. ASSESSMENT: Incomplete: need additional imaging evaluation, BI-RAD 0 RECOMMENDATION: Ultrasound of the right breast. [facility] will attempt to contact patient to return for ultrasound.
== END | disposition home or self-care (01) ==
LOC: RADMAMWWP 07:16
PROVIDERS: ATTEND Family Medicine
DX: Z12.31 Encounter for screening mammogram for malignant neoplasm of breast (principal)
CPT/HCPCS: 77063; 77067

== ENCOUNTER → 2019-11-08 | Outpatient (CLI) | payer MEDICARE, OTHER ==
--- NOTE | 2019-11-09 09:00 | USB ---
Reason for exam: additional evaluation requested from abnormal screening. History: Patient is postmenopausal. Benign excisional biopsy of the right breast, July 29, 1998. 2 benign excisional biopsies of the left breast. Physical Findings: Nurse did not find any significant physical abnormalities on exam. US Breast Workup Limited RT Right limited breast ultrasound including focal area of concern, retroareolar and axilla demonstrates a 4 x 3 x 4mm oval, cystic lesion at 5 o'clock, corresponds with mammogram. These results were verbally communicated with the patient and result sheet given to the patient on 11/08/19. ASSESSMENT: Benign, BI-RAD 2 RECOMMENDATION: Return to routine screening mammogram schedule for both breasts.
== END | disposition home or self-care (01) ==
LOC: RADUSWWP 14:50
PROVIDERS: ATTEND Family Medicine
DX: R92.8 Other abnormal and inconclusive findings on diagnostic imaging of breast (principal)

== ENCOUNTER 2020-08-13 16:18 | Emergency (ER) | payer MEDICARE, OTHER ==
[2020-08-13 16:31] VITALS: BP 122/63; PULSE 102; RESP 16; TEMP 98.7
--- NOTE | 2020-08-13 17:33 | ED ---
Weakness HPI - General Chief complaint: Weakness Stated complaint: Sent by PCP Time Seen by Provider: 08/13/20 17:20 Source: patient Mode of arrival: ambulatory Limitations: no limitations - History of Present Illness Initial comments: 75-year-old female presenting for generalized weakness and frequent falls. Patient states that she thought she washere as a direct admit. They are getting dressed and packed up to leave as I am obtaining history they state that they want to go home they do not want to be in the hospital as patients lining the halls and are scared of covid. Patient left without PE completed. Only partial history obtained. - Related Data Home Medications Medication Instructions Recorded Confirmed Cyclobenzaprine [Flexeril] 10 mg PO HS 04/11/16 03/16/18 Levothyroxine Sodium [Synthroid] 75 mcg PO DAILY 04/11/16 03/16/18 Meloxicam [Mobic] 7.5 mg PO BID 04/11/16 03/16/18 Omeprazole 20 mg PO HS 04/11/16 03/16/18 Simvastatin [Zocor] 80 mg PO DAILY 04/11/16 03/16/18 hydroCHLOROthiazide [Hydrodiuril] 25 mg PO DAILY 04/11/16 03/16/18 risperiDONE [RisperDAL] 2 mg PO BID 04/11/16 03/16/18 carBAMazepine [Carbatrol] 400 mg PO Q12H 03/07/17 03/16/18 Aspirin 81 mg PO DAILY 03/14/18 03/16/18 clonazePAM [KlonoPIN] 0.5 mg PO QID 03/16/18 03/16/18 Allergies Allergy/AdvReac Type Severity Reaction Status Date / Time hydrocodone [From [place]] AdvReac inreases Verified 08/13/20 16:31 bipolar Review of Systems ROS Statement: Those systems with pertinent positive or pertinent negative responses have been documented in the HPI. ROS Other: All systems not noted in ROS Statement are negative. Past Medical History Past Medical History: GERD/Reflux, Hyperlipidemia, Hypertension, Thyroid Disorder Additional Past Medical History / Comment(s): Pt recently admitted to [facility] on 03/12/18 with severe low back pain with difficulty walking and urinating. She received an lumbar epidural injection on 03/14/18. Other hx; Chronic low back pain which has increased since November 2017, spinal stenosis L3-L4/L4-L5, DDD, hypothyroid. History of Any Multi-Drug Resistant Organisms: None Reported Past Surgical History: Cholecystectomy, Orthopedic Surgery Additional Past Surgical History / Comment(s): Bilateral cataract surgery, benign cyst removal left breast, bilateral breast fibrotic tissue removed, facet blocks, bilateral total hip arthroplasties, R foot with plate/screws, D&C hysteroscopy, gum surgery, back sx Past Anesthesia/Blood Transfusion Reactions: No Reported Reaction Past Psychological History: Anxiety, Bipolar, Depression Smoking Status: Never smoker Past Alcohol Use History: None Reported Past Drug Use History: None Reported - Past Family History Mother Family Medical History: Skin Disorder Additional Family Medical History / Comment(s): Mother had psoriasis. She lived to be 86yrs. old. Father Family Medical History: No Reported History Additional Family Medical History / Comment(s): Father had a brain injury and had to have a plate placed. He later from his brain swelling/increasing pressure. General Exam Limitations: no limitations Course Vital Signs 08/13/20 16:29 Temperature 98.7 F Pulse Rate 102 H Respiratory 16 Rate Blood Pressure 122/63 O2 Sat by Pulse 98 Oximetry Medical Decision Making - Medical Decision Making Pt left AMA prior to completion of care. Did not sign paper work, just quickly left the ER stating they were a direct admit. Called Ellie Admin Charge--no direct admits today, called charge nurse mila she states that she just wants to leave they were packin gup as i entered room and quickly left stating they dont want to be exposed to covid. Disposition Clinical Impression: Weakness Disposition: Left Against Medical Advice Condition: Undetermined Is patient prescribed a controlled substance at d/c from ED?: No Referrals: Rod Morgan MD [Primary Care Provider] - 1-2 days Time of Disposition: 17:33
== END 2020-08-13 17:38 | disposition left against medical advice (07) ==
LOC: EC 16:18
DX: R53.1 Weakness (principal); Z91.81 History of falling; F41.9 Anxiety disorder, unspecified; F31.9 Bipolar disorder, unspecified; K21.9 Gastro-esophageal reflux disease without esophagitis; E78.5 Hyperlipidemia, unspecified; I10 Essential (primary) hypertension; E07.9 Disorder of thyroid, unspecified; Z79.82 Long term (current) use of aspirin; Z79.890 Hormone replacement therapy; Z79.899 Other long term (current) drug therapy; Z88.5 Allergy status to narcotic agent; Z98.42 Cataract extraction status, left eye; Z98.41 Cataract extraction status, right eye; Z96.643 Presence of artificial hip joint, bilateral; Z53.29 Procedure and treatment not carried out because of patient's decision for other reasons
CPT/HCPCS: 99284

== ENCOUNTER → 2021-02-27 | Outpatient (CLI) | payer MEDICARE, OTHER ==
[2021-03-03 16:10] LABS: Arsenic Whole Blood <3 mcg/L (< 23); Mercury Whole Blood <2 mcg/L (< 11)
== END | disposition home or self-care (01) ==
LOC: LABWHC1 10:42
PROVIDERS: ATTEND Family Medicine
DX: R41.82 Altered mental status, unspecified (principal)
CPT/HCPCS: 36415; 82175; 82570; 83018; 83655; 83825

== ENCOUNTER → 2021-06-10 | Outpatient (CLI) | payer MEDICARE, OTHER ==
--- NOTE | 2021-06-10 11:34 | BD ---
EXAMINATION TYPE: Axial Bone Density DATE OF EXAM: 06/10/2021 COMPARISON: NONE CLINICAL HISTORY: Height: 4 FT 11 IN Weight: 132 FRAX RISK QUESTIONS: Alcohol (3 or more units per day): NO Family History (Parent hip fracture): NO Glucocorticoids (More than 3mos): NO (Ex: prednisone, prednisolone, methylprednisolone, dexamethasone, and hydrocortisone). History of Fracture in Adulthood: YES Secondary Osteoporosis: 1. Type 1 Diabetes: NO 2. Hyperthyroidism: NO 3. Menopause before 45: NO 4. Malnutrition: NO 5. Chronic liver disease: NO Rheumatoid Arthritis: NO Current Tobacco Use: NO RISK FACTORS HISTORY OF: Surgery to Spine/Hip(right/left)/Wrist (right/left): ELOISE HIP REPLACEMENT LUMBAR SURG When: 2009 AND 2013 HIPS, LUMBAR 2018 Family History of Osteoporosis: NO Active: NO Diet low in dairy products/other sources of calcium: NO Postmenopausal woman: AGE 45 Take estrogen and/or progesterone medications: NONE Lost more than 2 inches in height since high school: YES Frequent falls: NOT NOW Poor Health: GOOD MEDICATIONS: Prednisone or other steroids: How Long: Thyroid Medications: YES Which medication: LEVOTHYROXINE How Long: FOR YEARS Osteoporosis Medications: Which medication: How Long: Additional Medications: MEDS FOR BI POLAR, TEGRETOL, RIP IDOL, ANXIETY MEDS, SIMVASTATIN, THYROID ME DS, ASPIRIN,H2O PILL Additional History: PT IS BIPOLAR EXAM MEASUREMENTS: Bone mineral density about the R Wrist (g/cm2): 0.520 Bone mineral density about the L Wrist (g/cm2): 0.578 T Score values are as follows: -----Dist. R+U: LEFT -1.9 RIGHT-1.4 -----Prox. R+U: LEFT -0.9 RIGHT -1.8 -----Radius total: LEFT -1.6 RIGHT-2.6 FIRST TIME FOR ONLY FOREARMS IMPRESSION: Osteopenia (T Score between -2.5 and -1). There is slightly increased risk of fracture and the patient may be considered for treatment. Re-Screen 2-5 years. NOTE: T-SCORE=SD OF THE YOUNG ADULT MEAN.
--- NOTE | 2021-06-11 12:05 | MM ---
Reason for exam: screening (asymptomatic). Last mammogram was performed 1 year and 7 months ago. History: Patient is postmenopausal. Benign excisional biopsy of the right breast, July 29, 1998. 2 benign excisional biopsies of the left breast. Physical Findings: A clinical breast exam by your physician is recommended on an annual basis and results should be correlated with mammographic findings. MG 3D Screening Mammo W/Cad Bilateral CC and MLO view(s) were taken. Prior study comparison: October 29, 2019, bilateral MG 3d screening mammo w/cad. August 15, 2018, bilateral MG 3d screening mammo w/cad. The breast tissue is heterogeneously dense. This may lower the sensitivity of mammography. There are benign appearing round, dystrophic calcifications bilaterally. There is chronic nodularity in the left breast. There is no discrete abnormality. ASSESSMENT: Benign, BI-RAD 2 RECOMMENDATION: Routine screening mammogram of both breasts in 1 year.
== END | disposition home or self-care (01) ==
LOC: RADMAMWWP 09:53
PROVIDERS: ATTEND Family Medicine
DX: Z12.31 Encounter for screening mammogram for malignant neoplasm of breast (principal); Z78.0 Asymptomatic menopausal state; M85.89 Other specified disorders of bone density and structure, multiple sites
CPT/HCPCS: 77063; 77067; 77080

== ENCOUNTER 2021-10-16 09:03 | Day surgery (SDC) | payer MEDICARE, OTHER ==
[2021-10-12 14:45] VITALS: BMI 24.6
[~2021-10-16 09:03] MED LIST: LACTATED RINGERS 1,000 ML IV SCH
[2021-10-16] MEDS ORDERED: LIDOCAINE 1% (10MG/ML) FOR IV START INTRADERMA ONE (09:55)
[2021-10-16 10:05] VITALS: TEMP 97.5
[2021-10-16] MEDS ORDERED: LIDOCAINE 1% INJ 10MG/ML (20 ML MDV) ONE (10:35)
[2021-10-16] MEDS ORDERED: PROPOFOL 10 MG/ML 20 ML VIAL IV ONE (10:35)
--- NOTE | 2021-10-16 10:52 | P.PCN ---
Date of Procedure: 10/16/21 Procedure(s) Performed: BRIEF HISTORY: Patient is a 68-year-old pleasant white female scheduled for an elective colonoscopy as a part of evaluation of intermittent rectal bleeding. Last colonoscopy was 15 years ago. PROCEDURE PERFORMED: Colonoscopy. PREOPERATIVE DIAGNOSIS: Intermittent rectal bleeding. IV sedation per Anesthesia. PROCEDURE: After informed consent was obtained, the patient, was brought into the endoscopy unit. IV sedation was administered by Anesthesia under continuous monitoring. Digital rectal examination was normal. Initially the Olympus CF-160 flexible video colonoscope was then inserted in the rectum, gradually advanced into the cecum without any difficulty. Careful examination was performed as the scope was gradually being withdrawn. Ileocecal valve and the appendiceal orifice were visualized and appeared normal. Prep was excellent. Mucosa of the cecum, ascending colon, transverse colon, descending colon, sigmoid colon, and rectum appeared normal. Retroflexion was performed in the rectum and monitor hemorrhoids were seen. There was mild erythema just proximal to the dentate line circumferentially suspicious for mild rectal prolapse. The patient tolerated the procedure well. IMPRESSION: Normal-appearing colon from rectum to cecum no evidence of colorectal neoplasia . Small internal hemorrhoids Mild erythema in the distal rectum suspicious for rectal prolapse RECOMMENDATIONS: Findings of this examination were discussed with the patient well as her family. She was advised to be a high-fiber diet and take fiber supplements a regular basis and avoid straining and constipation..
[2021-10-16 11:13] VITALS: BP 116/74; PULSE 62; RESP 16
== END 2021-10-16 11:40 | disposition home or self-care (01) ==
LOC: ORWHC2ENDO 09:03
PROVIDERS: ATTEND Internal Medicine Gastroenterology
DX: K62.5 Hemorrhage of anus and rectum (principal); K64.8 Other hemorrhoids; E78.5 Hyperlipidemia, unspecified; E07.9 Disorder of thyroid, unspecified; M48.00 Spinal stenosis, site unspecified; Z90.49 Acquired absence of other specified parts of digestive tract; Z98.42 Cataract extraction status, left eye; Z98.41 Cataract extraction status, right eye; Z96.643 Presence of artificial hip joint, bilateral; Z98.890 Other specified postprocedural states; Z97.2 Presence of dental prosthetic device (complete) (partial); Z79.82 Long term (current) use of aspirin; Z79.890 Hormone replacement therapy; Z79.899 Other long term (current) drug therapy; Z88.5 Allergy status to narcotic agent
CPT/HCPCS: 45378; J2001; J2704

== ENCOUNTER 2022-08-06 08:56 | Emergency (ER) | payer MEDICARE, OTHER ==
[2022-08-06 09:03] VITALS: RESP 18
[2022-08-06] MEDS ORDERED: LIDOCAINE 1% INJ 10MG/ML (30 ML VIAL-PF) SQ ONE (09:32)
[2022-08-06 09:48] LABS: Basophils % (A) 0 %; Eosinophils % (A) 0 %; HCT 37.6 % (34.0-46.0); Lymphocytes # (A) 0.5 k/uL (1.0-4.8); Lymphocytes % (A) 4 %; MCH 32.4 pg (25.0-35.0); MCHC 34.5 g/dL (31.0-37.0); MCV 93.9 fL (80.0-100.0); Mean Platelet Volume 7.2; Monocytes # (A) 0.7 k/uL (0-1.0); Monocytes % (A) 6 %; Neutrophils % (A) 88 %; Platelet Count 334 k/uL (150-450); RBC 4.01 m/uL (3.80-5.40); RDW 11.2 % (11.5-15.5); WBC 11.4 k/uL (3.8-10.6)
[2022-08-06 10:01] LABS: ALT 19 U/L (4-34); AST 23 U/L (14-36); African American GFR (CKD) >90 (>60 ml/min/1.73 sqM); Albumin 3.7 g/dL (3.5-5.0); Alkaline Phosphatase 167 U/L (38-126); Anion Gap 10 mmol/L; Blood Urea Nitrogen 15 mg/dL (7-17); Calcium 8.9 mg/dL (8.4-10.2); Carbon Dioxide 25 mmol/L (22-30); Chloride 92 mmol/L (98-107); Glucose 154 mg/dL (74-99); Non-African American GFR(CKD) 87 (>60 ml/min/1.73 sqM); Potassium 3.5 mmol/L (3.5-5.1); Sodium 127 mmol/L (137-145); Total Bilirubin 0.4 mg/dL (0.2-1.3); Total Protein 6.2 g/dL (6.3-8.2)
--- NOTE | 2022-08-06 10:41 | ED ---
Fall HPI - General Chief Complaint: Wound/Laceration Stated Complaint: fall, arm lac Time Seen by Provider: 08/06/22 09:20 Source: patient, EMS Mode of arrival: EMS - History of Present Illness Initial Comments: Patient is a pleasant 77-year-old female presenting to the emergency room via EMS after attempting to ambulate the bathroom by herself despite being on fall precautions and she was unsteady on her feet with some dizziness resulting in her falling and hitting her right forearm on the toilet. She does not recall hitting her head but unfortunately does have baseline of dementia causing her to be a poor historian at times. She denies any pain in any other extremity. She denies any chest pain, shortness of breath, headache, dizziness at this time, abdominal pain nausea or vomiting. In addition to her dementia history she has a past medical history significant for hypothyroidism, hyperlipidemia, anxiety and depression. - Related Data Home Medications Medication Instructions Recorded Confirmed Levothyroxine Sodium [Synthroid] 75 mcg PO DAILY@0600 04/11/16 08/06/22 Simvastatin [Zocor] 80 mg PO HS 04/11/16 08/06/22 risperiDONE [RisperDAL] 2 mg PO HS 04/11/16 08/06/22 carBAMazepine [Carbatrol] 200 mg PO DAILY 03/07/17 08/06/22 clonazePAM [KlonoPIN] 0.5 mg PO TID@0600,1400,2200 03/16/18 08/06/22 Acetaminophen Tab [Tylenol] 650 mg PO Q4H PRN 08/06/22 08/06/22 Cholecalciferol [Vitamin D3 (125 125 mcg PO DAILY 08/06/22 08/06/22 Mcg = 5000 Iu)] Cranberry 450mg 450 mg PO HS 08/06/22 08/06/22 Donepezil [Aricept] 10 mg PO HS 08/06/22 08/06/22 Lactose-Reduced Food [Ensure Plus] 1 can PO BID@1300,2100 08/06/22 08/06/22 Melatonin 3 mg PO HS 08/06/22 08/06/22 Zguard 1 applic TOPICAL BID 08/06/22 08/06/22 busPIRone HCl [Buspar] 10 mg PO BID 08/06/22 08/06/22 hydroCHLOROthiazide [Hydrodiuril] 25 mg PO DAILY@0600 08/06/22 08/06/22 traMADol HCl [Ultram] 50 mg PO Q6HR PRN 08/06/22 08/06/22 Allergies Allergy/AdvReac Type Severity Reaction Status Date / Time hydrocodone [From [place]] AdvReac increases Verified 08/06/22 10:29 bipolar Review of Systems ROS Statement: Those systems with pertinent positive or pertinent negative responses have been documented in the HPI. ROS Other: All systems not noted in ROS Statement are negative. Past Medical History Past Medical History: Hyperlipidemia, Thyroid Disorder Additional Past Medical History / Comment(s): Pt recently admitted to [facility] on 03/12/18 with severe low back pain with difficulty walking and urinating. She received an lumbar epidural injection on 03/14/18. Other hx; Chronic low back pain which has increased since November 2017, spinal stenosis L3-L4/L4-L5, DDD, hypothyroid. History of Any Multi-Drug Resistant Organisms: None Reported Past Surgical History: Back Surgery, Cholecystectomy, Joint Replacement, Orthopedic Surgery Additional Past Surgical History / Comment(s): Bilateral cataract surgery. benign cyst removal left breast, bilateral breast fibrotic tissue removed. bilateral total hip replacement. R foot surg. with plate/screws Past Anesthesia/Blood Transfusion Reactions: No Reported Reaction Past Psychological History: Anxiety, Bipolar, Depression Smoking Status: Former smoker Past Alcohol Use History: None Reported Past Drug Use History: None Reported - Past Family History Father Family Medical History: No Reported History Additional Family Medical History / Comment(s): Father had a brain injury and had to have a plate placed. He later from his brain swelling/increasing pressure. General Exam General appearance: alert, in no apparent distress Head exam: Present: normocephalic, normal inspection Eye exam: Present: normal appearance, PERRL, EOMI. Absent: scleral icterus, conjunctival injection, periorbital swelling ENT exam: Present: normal exam, mucous membranes moist Neck exam: Present: normal inspection. Absent: tenderness Respiratory exam: Present: normal lung sounds bilaterally. Absent: respiratory distress, wheezes, rales, rhonchi, stridor Cardiovascular Exam: Present: regular rate, normal rhythm, normal heart sounds. Absent: systolic murmur, diastolic murmur, rubs, gallop, clicks GI/Abdominal exam: Present: soft, normal bowel sounds. Absent: distended, tenderness, guarding, rebound, rigid Right Elbow exam: Present: full ROM. Absent: tenderness, swelling Forearm Wrist exam: Present: full ROM, tenderness, laceration (Large V-shaped laceration mid forearm lateral aspect ). Absent: swelling, deformity, crepitus, dislocation Hand Wrist exam: Present: normal inspection, full ROM Vascular: Absent: vascular compromise Back exam: Present: normal inspection. Absent: tenderness Neurological exam: Present: alert Expanded Patient oriented to: Present: person, place. Absent: time Psychiatric exam: Present: normal affect, normal mood Skin exam: Present: other (Laceration as indicated above) Course Vital Signs 08/06/22 08/06/22 08/06/22 08:58 11:03 12:33 Temperature 99.0 F 98.3 F Pulse Rate 95 94 74 Respiratory 18 18 18 Rate Blood Pressure 111/57 114/60 114/74 O2 Sat by Pulse 99 100 98 Oximetry Procedures - Laceration Laceration #1 Consent Obtained: verbal consent Indication: laceration Site: upper extremity Size (cm): 7 (V shaped ) Depth: simple, single layer Anesthetic Used: lidocaine 1% Anesthesia Technique: local infiltration Pre-repair: wound explored, irrigated extensively, wound margins revised Type of Sutures: nylon Size of Sutures: 4-0 Number of Sutures: 12 Technique: simple, interrupted Patient Tolerated Procedure: well, no complications Medical Decision Making - Medical Decision Making 77-year-old female presenting to the emergency room via EMS after a fall with dizziness prior to the fall. No known loss of consciousness or and unsure of head trauma. No blood thinners. Due to dizziness and unknown head trauma will obtain computed tomography scan of the brain along with cervical spine. Large laceration to right forearm will obtain x-ray of right forearm. Will obtain CBC and CMP. Currently resting comfortably denies any analgesic need. Will monitor and plan for laceration closure after x-rays complete. CT of the brain and cervical spine image reviewed by myself showing no evidence of intracranial pre-bleed or mass effect, atrophy noted, no cervical fracture or dislocation. X-ray right forearm hematuria reviewed by me revealing no acute fracture or dislocation. Will proceed with closure of laceration. CBC shows mild leukocytosis with a WBC 11.4. Sodium level low at 127 patient with known history of hyponatremia. No indication for admission or IV hydration. Laceration closed without complication. Will discharge patient back to [facility] in stable condition with follow-up with provider she is seeing at the facility. Case discussed with Dr. Chowdhury. - Lab Data Result diagrams: 08/06/22 09:38 08/06/22 09:38 Lab Results 08/06/22 08/06/22 Range/Units 09:38 09:38 WBC 11.4 H (3.8-10.6) k/uL RBC 4.01 (3.80-5.40) m/uL Hgb 13.0 (11.4-16.0) gm/dL Hct 37.6 (34.0-46.0) % MCV 93.9 (80.0-100.0) fL MCH 32.4 (25.0-35.0) pg MCHC 34.5 (31.0-37.0) g/dL RDW 11.2 L (11.5-15.5) % Plt Count 334 (150-450) k/uL MPV 7.2 Neutrophils % 88 % Lymphocytes % 4 % Monocytes % 6 % Eosinophils % 0 % Basophils % 0 % Neutrophils # 10.0 H (1.3-7.7) k/uL Lymphocytes # 0.5 L (1.0-4.8) k/uL Monocytes # 0.7 (0-1.0) k/uL Eosinophils # 0.0 (0-0.7) k/uL Basophils # 0.0 (0-0.2) k/uL Sodium 127 L (137-145) mmol/L Potassium 3.5 (3.5-5.1) mmol/L Chloride 92 L (98-107) mmol/L Carbon Dioxide 25 (22-30) mmol/L Anion Gap 10 mmol/L BUN 15 (7-17) mg/dL Creatinine 0.61 (0.52-1.04) mg/dL Est GFR (CKD-EPI)AfAm >90 (>60 ml/min/1.73 sqM) Est GFR (CKD-EPI)NonAf 87 (>60 ml/min/1.73 sqM) Glucose 154 H (74-99) mg/dL Calcium 8.9 (8.4-10.2) mg/dL Total Bilirubin 0.4 (0.2-1.3) mg/dL AST 23 (14-36) U/L ALT 19 (4-34) U/L Alkaline Phosphatase 167 H (38-126) U/L Total Protein 6.2 L (6.3-8.2) g/dL Albumin 3.7 (3.5-5.0) g/dL - Radiology Data Radiology results: report reviewed, image reviewed CT of the brain and cervical spine without contrast impression radiologist no acute intracranial process. Chronic appearing periventricular white matter ischemic changes progressive from 2017 with some age-related atrophy. Advanced degenerative disc changes especially within the mid cervical spine. Minimal grade 1 spondylolisthesis of C7 anteriorly on T1. Multilevel severe foramen stenosis due to uncovertebral joint hypertrophy and facet hypertrophy. No acute osseous abnormality. X-ray right forearm impression by radiologist no acute osseous abnormality right forearm. Soft tissue injury distal forearm. No radiopaque foreign bodies evident. 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 Disposition Clinical Impression: Fall, Laceration Disposition: HOME SELF-CARE Condition: Stable Instructions (If sedation given, give patient instructions): Care For Your Stitches (ED), Laceration (ED) Additional Instructions: Please keep wound clean and dry. Monitor for signs and symptoms of infection and seek medical attention as appropriate if symptoms occur. Please follow-up with your primary care provider for suture removal in 7-10 days. Please return to the Emergency Department if symptoms worsen or any other concerns. Is patient prescribed a controlled substance at d/c from ED?: No Referrals: Jennifer Finley MD [Primary Care Provider] - 1-2 days Time of Disposition: 11:42
--- NOTE | 2022-08-06 10:48 | CT ---
EXAMINATION TYPE: CT brain darius myers con DATE OF EXAM: 08/06/2022 COMPARISON: 03/07/2017 HISTORY: Fall, dizziness, dementia CT DLP: 1216.3 mGycm, Automated exposure control for dose reduction was used. CONTRAST: Patient injected with 0 mL of Isovue 300. CT of the brain is performed utilizing 3 mm thick sections through the posterior fossa and 3 mm thick sections through the remaining calvarium. Study is performed within 24 hours of arrival to the hospital. No abnormal hyperdensity is present to suggest an acute intracranial hemorrhage. No mass lesion is evident. No acute infarcts are evident. There is scattered periventricular white matter hypodensity, likely o n the basis of chronic white matter ischemic changes. This appears to be progressive from the compari son. Ventricles and sulci are somewhat prominent for the patient age. Paranasal sinuses and mastoid air cells within the [id number] are clear. IMPRESSIONS: 1. No acute intracranial process. Follow-up MRI can be performed as clinically indicated. 2. Chronic appearing periventricular white matter ischemic changes, progressive from 2017 with some a ge related atrophy. CT cervical spine. COMPARISON: 03/07/2017 CT of the cervical spine is performed in the axial plane at 2 mm thick sections. Reconstructed image s in the coronal, and sagittal plane are reviewed on the computer. No acute fractures are evident. There is a kyphosis centered at approximately C4-5. Loss of disc height is present through the cervical spine most notably at C4-5 C5-6 C6-7. A subtle gr scotty 1 spondylolisthesis of C7 anteriorly on T1 is present. Vertebral body heights are preserved. No spinal canal stenosis is evident. Some posterior cyst spinal canal calcification is present adjace nt to the spinous process L5 level. Uncovertebral joint hypertrophy and facet hypertrophy contributing to left foraminal stenosis at C2-3 . Facet hypertrophy and uncovertebral joint hypertrophy contributing to bilateral C3-4 foraminal sten osis. Severe bilateral foraminal stenosis is present at C4-5 due to uncovertebral joint hypertrophy a nd some facet hypertrophy. There is severe right and moderate to severe left foraminal stenosis C5-6 due to uncovertebral joint hypertrophy. Milder foraminal narrowing is present at C6-7 bilaterally due to uncovertebral joint hypertrophy. IMPRESSIONS: 1. Advanced degenerative disc changes especially within the mid cervical spine. 2. Minimal grade 1 spondylolisthesis of C7 anteriorly on T1. 3. Multilevel severe foraminal stenosis due to uncovertebral joint hypertrophy and facet hypertrophy discussed above. 4. No acute osseous abnormality radiographically evident.
--- NOTE | 2022-08-06 10:52 | XR ---
EXAMINATION TYPE: XR forearm RT DATE OF EXAM: 08/06/2022 COMPARISON: None HISTORY: Cut off all TECHNIQUE: Right forearm is examined in 2 projections. FINDINGS: No acute fractures are evident. An old nonunion of the radial neck at the radial head is ev ident. The residual radial head is articulating with the distal humerus. Soft tissue injury along the anterior medial portion of the distal forearm is evident. Radiopaque for eign bodies are not identified. There is advanced degenerative change at the first metacarpal phalangeal joint space. Some subluxatio n of the phalanx may be present. IMPRESSION: 1. No acute osseous abnormality right forearm. 2. Soft tissue injury distal forearm. No radiopaque foreign bodies evident. 3. 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 4. Follow up exams can be performed 7-10 days from acute trauma for continued pain.
[2022-08-06 12:35] VITALS: BP 114/74; PULSE 74; TEMP 98.3
== END 2022-08-06 12:37 | disposition home or self-care (01) ==
LOC: EC 08:56
DX: S51.811A Laceration without foreign body of right forearm, initial encounter (principal); E78.5 Hyperlipidemia, unspecified; E03.9 Hypothyroidism, unspecified; F41.9 Anxiety disorder, unspecified; F31.9 Bipolar disorder, unspecified; Z87.891 Personal history of nicotine dependence; Z88.5 Allergy status to narcotic agent; Z79.890 Hormone replacement therapy; Z79.899 Other long term (current) drug therapy; W01.198A Fall on same level from slipping, tripping and stumbling with subsequent striking against other object, initial encounter; Y92.002 Bathroom of unspecified non-institutional (private) residence as the place of occurrence of the external cause
CPT/HCPCS: 99284; 12002; 36415; 80053; 85025; 73090; 72125; 70450; J2001

== ENCOUNTER → 2022-10-27 | Outpatient (CLI) | payer MEDICARE, OTHER ==
--- NOTE | 2022-10-27 10:27 | MM ---
Reason for Exam: Screening (asymptomatic). Last mammogram was performed 1 year(s) and 5 month(s) ago. Patient History: Menarche at age 14. First Full-Term at age 22. Postmenopausal. Benign Excisional Biopsy on the left side. Benign Excisional Biopsy on the left side. 07/29/1998, Benign Excisional Biopsy on the right side. Risk Values: Madelaine 5 year model risk: 2.1%. NCI Lifetime model risk: 3.5%. Prior Study Comparison: 08/15/2018 Bilateral Screening Mammogram, [facility]. 10/29/2019 Bilateral Screening Mammogram, [facility]. 06/10/2021 Bilateral Screening Mammogram, [facility]. Tissue Density: The breast tissue is heterogeneously dense. This may lower the sensitivity of mammography. Analyzed By CAD. Overall Assessment: Benign, BI-RAD 2 Management: Screening Mammogram of both breasts in 1 year. Electronically signed and approved by: Jonathan Jackson DO
== END | disposition home or self-care (01) ==
LOC: RADMAMWWP 09:51
PROVIDERS: ATTEND Family Medicine
DX: Z12.31 Encounter for screening mammogram for malignant neoplasm of breast (principal); Z78.0 Asymptomatic menopausal state
CPT/HCPCS: 77063; 77067

== ENCOUNTER → 2022-12-31 | Outpatient (CLI) | payer MEDICARE, OTHER ==
[2022-12-31 20:15] LABS: Basophils # (A) 0.04 X 10*3/uL (0.00-0.10); Basophils % (A) 0.6 %; Eosinophils # (A) 0.03 X 10*3/uL (0.04-0.35); Eosinophils % (A) 0.5 %; HCT 41.3 % (37.2-46.3); HGB 13.7 g/dL (12.0-15.0); Immature Grans, Automated 0.3 %; Lymphocytes # (A) 1.22 X 10*3/uL (0.90-5.00); Lymphocytes % (A) 19.7 %; MCHC 33.2 g/dL (32.0-37.0); MCV 93.4 fL (80.0-97.0); Mean Platelet Volume 9.7 fL (9.5-12.2); Monocytes # (A) 0.41 X 10*3/uL (0.20-1.00); Monocytes % (A) 6.6 %; NRBC Per 100 WBC 0 /100 WBCS (0.0-0.0); Neutrophils # (A) 4.46 X 10*3/uL (1.80-7.70); Neutrophils % (A) 72.3 %; Platelet Count 305 X 10*3/uL (140-440); RBC 4.42 X 10*6/uL (4.10-5.20); RDW 12.5 % (11.5-14.5); WBC 6.18 X 10*3/uL (4.50-10.00)
[2022-12-31 20:39] LABS: Carbamazepine (Tegretol) 7.6 ug/mL (4.0-12.0)
[2022-12-31 20:46] LABS: Uric Acid 4.2 mg/dL (2.9-7.7)
[2022-12-31 20:47] LABS: African American GFR (CKD) 83.9 (60.0-200.0); Albumin 4.2 g/dL (3.8-4.9); Albumin/Globulin Ratio 1.55 (1.60-3.17); Anion Gap 13.1 mmol/L (10.00-18.00); BUN/Creat Ratio 18.49 Ratio (12.00-20.00); Blood Urea Nitrogen 14.4 mg/dL (9.0-27.0); Carbon Dioxide 25.5 mmol/L (20.0-27.5); Globulin 2.7 g/dL (1.6-3.3); Non-African American GFR(CKD) 72.4 (60.0-200.0); Potassium 4.9 mmol/L (3.5-5.5); T4, Free (Free Thyroxine) 1.31 ng/dL (0.800-1.800); Total Bilirubin 0.4 mg/dL (0.30-1.20); Total Protein 6.9 g/dL (6.2-8.2)
[2023-01-01 04:52] LABS: Appearance,Urine Cloudy (Clear); Bilirubin,Urine Negative (Negative); Blood,Urine Negative (Negative); Color,Urine Yellow (Yellow); Ketones,Urine Negative (Negative); Nitrite,Urine Negative (Negative); PH, Urine 7.5 (5.0-8.0); Specific Gravity,Urine 1.017 (1.001-1.030)
[2023-01-01 05:07] LABS: Bacteria,Urine 2+ /HPF (None Seen)
== END | disposition home or self-care (01) ==
LOC: LABWHC1 14:04
DX: F31.9 Bipolar disorder, unspecified (principal)
CPT/HCPCS: 36415; 80053; 80156; 81001; 82164; 82306; 82533; 82607; 82746; 84439; 84443; 84550; 84588; 85025

== ENCOUNTER 2024-12-20 19:45 | Emergency (ER) | payer MEDICARE, OTHER ==
[2024-12-20 19:57] VITALS: RESP 18
--- NOTE | 2024-12-20 20:44 | ED ---
Fall HPI - General Chief Complaint: Fall Stated Complaint: Fall Source: patient, EMS Mode of arrival: EMS - History of Present Illness Initial Comments: Trish is a pleasantly demented 79-year-old female brought to the ER today after [facility]. It was unwitnessed and patient complains only of pain in her left knee area she has not been able to stand or bear weight. Uncertain if she hit her head though there is no obvious signs of trauma. - Related Data Home Medications Medication Instructions Recorded Confirmed Levothyroxine Sodium [Synthroid] 75 mcg PO DAILY@0600 04/11/16 08/06/22 Simvastatin [Zocor] 80 mg PO HS 04/11/16 08/06/22 risperiDONE [RisperDAL] 2 mg PO HS 04/11/16 08/06/22 carBAMazepine [Carbatrol] 200 mg PO DAILY 03/07/17 08/06/22 clonazePAM [KlonoPIN] 0.5 mg PO TID@0600,1400,2200 03/16/18 08/06/22 Acetaminophen Tab [Tylenol] 650 mg PO Q4H PRN 08/06/22 08/06/22 Cholecalciferol [Vitamin D3 (125 125 mcg PO DAILY 08/06/22 08/06/22 Mcg = 5000 Iu)] Cranberry 450mg 450 mg PO HS 08/06/22 08/06/22 Donepezil [Aricept] 10 mg PO HS 08/06/22 08/06/22 Lactose-Reduced Food [Ensure Plus] 1 can PO BID@1300,2100 08/06/22 08/06/22 Melatonin 3 mg PO HS 08/06/22 08/06/22 Zguard 1 applic TOPICAL BID 08/06/22 08/06/22 busPIRone HCl [Buspar] 10 mg PO BID 08/06/22 08/06/22 hydroCHLOROthiazide [Hydrodiuril] 25 mg PO DAILY@0600 08/06/22 08/06/22 traMADol HCl [Ultram] 50 mg PO Q6HR PRN 08/06/22 08/06/22 Allergies Allergy/AdvReac Type Severity Reaction Status Date / Time hydrocodone [From [place]] AdvReac increases Verified 12/20/24 19:57 bipolar Review of Systems ROS Statement: Those systems with pertinent positive or pertinent negative responses have been documented in the HPI. ROS Other: All systems not noted in ROS Statement are negative. Past Medical History Past Medical History: Hyperlipidemia, Thyroid Disorder Additional Past Medical History / Comment(s): Pt recently admitted to [facility] on 03/12/18 with severe low back pain with difficulty walking and urinating. She received an lumbar epidural injection on 03/14/18. Other hx; Chronic low back pain which has increased since November 2017, spinal stenosis L3-L4/L4-L5, DDD, hypothyroid. History of Any Multi-Drug Resistant Organisms: None Reported Past Surgical History: Back Surgery, Cholecystectomy, Joint Replacement, Orthopedic Surgery Additional Past Surgical History / Comment(s): Bilateral cataract surgery. benign cyst removal left breast, bilateral breast fibrotic tissue removed. bilateral total hip replacement. R foot surg. with plate/screws Past Anesthesia/Blood Transfusion Reactions: No Reported Reaction Past Psychological History: Anxiety, Bipolar, Depression Smoking Status: Former smoker Past Alcohol Use History: None Reported Past Drug Use History: None Reported - Past Family History Father Family Medical History: No Reported History Additional Family Medical History / Comment(s): Father had a brain injury and had to have a plate placed. He later from his brain swelling/increasing pressure. General Exam - General Exam Comments Initial Comments: Physical Exam GENERAL: Patient is well-developed and well-nourished. Patient is nontoxic and well-hydrated and is in no distress. HENT: Normocephalic, Atraumatic. EYES: PERRL, EOMI PULMONARY: Unlabored respirations. CARDIOVASCULAR: RRR ABDOMEN: Non-distended SKIN: No rashes or bruising : Deferred NEUROLOGIC: Alert and oriented to self MUSCULOSKELETAL: Left leg shortened and rotated, pain with ROM of hip/knee Limitations: altered mental status Course Vital Signs 12/20/24 12/20/24 19:48 21:51 Temperature 97.0 F L Pulse Rate 109 H 90 Respiratory 18 18 Rate Blood Pressure 126/80 121/77 O2 Sat by Pulse 95 94 L Oximetry Medical Decision Making - Medical Decision Making Was pt. sent in by a medical professional or institution (, PA, [employer], urgent care, hospital, or fci...) When possible be specific @ -detention Did you speak to anyone other than the patient for history (EMS, parent, family, police, friend...)? What history was obtained from this source @ Family Did you review nursing and triage notes (agree or disagree)? Why? @ -I reviewed and agree with nursing and triage notes Were old charts reviewed (outside hosp., previous admission, EMS record, old EKG, old radiological studies, urgent care reports/EKG's, fci records)? Report findings @ Previous hospitalizations reviewed Differential Diagnosis (chest pain, altered mental status, abdominal pain women, abdominal pain men, vaginal bleeding, weakness, fever, dyspnea, syncope, headache, dizziness, GI bleed, back pain, seizure, CVA, palpatations, mental health)? @ Fracture EKG interpreted by me (3pts min.). @ -As above X-rays interpreted by me (1pt min.). @ Edwige-Prosthetic left hip fracture CT interpreted by me (1pt min.). @ -None done U/S interpreted by me (1pt. min.). @ -None done What testing was considered but not performed or refused? (CT, X-rays, U/S, labs)? Why? @ -None What meds were considered but not given or refused? Why? @ -None Did you discuss the management of the patient with other professionals (professionals i.e. , PA, [employer], lab, RT, psych nurse, director social, aircraft detail draftsperson, teacher, light armored vehicle officer, pillowcase cleaner)? Give summary @ -No Was smoking cessation discussed for >3mins.? @ -No Was critical care preformed (if so, how long)? @ -No Were there social determinants of health that impacted care today? How? (Homelessness, low income, unemployed, alcoholism, drug addiction, transportation, low edu. Level, literacy, decrease access to med. care, penitentiary, rehab)? @ -No Was there de-escalation of care discussed even if they declined (Discuss DNR or withdrawal of care, Hospice)? DNR status @ -No What co-morbidities impacted this encounter? (DM, HTN, Smoking, COPD, CAD, Cancer, CVA, ARF, Chemo, Hep., AIDS, mental health diagnosis, sleep apnea, morbid obesity)? @ -None Was patient admitted / discharged? Hospital course, mention meds given and route, prescriptions, significant lab abnormalities, going to OR and other pertinent info. @ -Transfer Patient seen, xrays obtained Imaging obtained and confirms periprosthetic fracture, case discussed with orthopedics on-call Dr. Kebede who recommends transfer to Ortho trauma facility. Family was agreeable. Patient Care discussed with Dr. Hart who accepts the transfer to [facility]. Undiagnosed new problem with uncertain prognosis? @ -Yes Drug Therapy requiring intensive monitoring for toxicity (Heparin, Nitro, Insulin, Cardizem)? @ -No Were any procedures done? @ -No Diagnosis/symptom? @ -Periprosthetic hip fracture Acute, or Chronic, or Acute on Chronic? @ -Acute Uncomplicated (without systemic symptoms) or Complicated (systemic symptoms)? @ -Default Side effects of treatment? @ -No Exacerbation, Progression, or Severe Exacerbation? @ -No Poses a threat to life or bodily function? How? (Chest pain, [place], MS, pneumonia, PE, COPD, DKA, ARF, appy, cholecystitis, CVA, Diverticulitis, Homicidal, Suicidal, threat to staff... and all critical care pts) @ -Unlikely Disposition Clinical Impression: Fall, Periprosthetic fracture around internal prosthetic hip joint Disposition: OTHER INSTITUTION NOT DEFINED Is patient prescribed a controlled substance at d/c from ED?: No Referrals: Jamila Jamison DO [Primary Care Provider] - 1-2 days - Out of Hospital Transfer - Req. Specs Out of Hospital Transfer - Requested Specifics: Other Emergency Center ([facility])
--- NOTE | 2024-12-20 20:46 | CT ---
EXAMINATION TYPE: CT brain cspine wo con DATE OF EXAM: 12/20/2024 COMPARISON: 08/06/2022 CLINICAL INDICATION: Female, 79 years old with history of fall, dementia; PHH, Fall. Might have hit l eft or right side of head pt is unsure. Unknown LOC. Pt has dementia. TECHNIQUE: CT scan of the head and cervical spine are performed without contrast. CT DLP: 1209.[address] CTDI: mGy Automated exposure control for dose reduction was used. FINDINGS: There is no acute intracranial hemorrhage, mass effect, or midline shift identified. The ventricles and sulci are within normal limits in size. The globes are intact and the visualized sinuses are priscila ar. Cervical spine is visualized in its entirety from C1 through upper thoracic levels and demonstrates s atisfactory alignment without evidence of acute fracture or dislocation. Severe multilevel degenerat gaston disc disease with ventral and dorsal spondylosis Prevertebral soft tissue appears within normal l imits. The C1-C2 articulation is unremarkable. IMPRESSION: There is no acute fracture or dislocation evident in the cervical spine. 2. No acute intracranial hemorrhage, mass effect, or midline shift is seen. [facility], , 12/20/2024 8:44 PM
--- NOTE | 2024-12-20 21:12 | XR ---
EXAMINATION TYPE: XR knee limited LT DATE OF EXAM: 12/20/2024 8:58 PM COMPARISON: None. CLINICAL INDICATION: Female, 79 years old with history of fall, pain TECHNIQUE: Three views of the left knee are obtained. FINDINGS: There is no acute fracture/dislocation evident in left knee. Severe multicompartment degen erative changes noted. Well-corticated ossific density medial femoral condyle likely reflects remote avulsion in this region. Correlate clinically with point tenderness. Small suprapatellar joint effusi on. The overlying soft tissue appears unremarkable. IMPRESSION: There is no acute fracture or dislocation in the left knee. [facility], , 12/20/2024 9:09 PM
--- NOTE | 2024-12-20 21:16 | XR ---
EXAMINATION TYPE: XR Hip Complete LT DATE OF EXAM: 12/20/2024 8:58 PM COMPARISON: None. CLINICAL INDICATION: Female, 79 years old with history of fall, pain TECHNIQUE: XR Hip Complete LT XX views were obtained. FINDINGS: Total left hip arthroplasty with fracture noted at the proximal femoral component with displaced frag ment noted medially. Fracture extends laterally to the subtrochanteric region. IMPRESSION: Fracture as discussed. [facility], , 12/20/2024 9:14 PM
[2024-12-20] MEDS: MORPHINE SULFATE 4 MG/ML SYRINGE IVP STA (21:42)
[2024-12-20] MEDS: ATORVASTATIN 40 MG TAB PO STA (22:59)
[2024-12-21 00:26] VITALS: BP 118/79; PULSE 109; TEMP 98.2
[2024-12-21] MEDS: MORPHINE SULFATE 4 MG/ML SYRINGE IVP STA (00:26)
== END 2024-12-21 00:38 | disposition other institution (70) ==
LOC: EC 19:45
DX: M97.02XA Periprosthetic fracture around internal prosthetic left hip joint, initial encounter (principal); Z87.891 Personal history of nicotine dependence; Z88.5 Allergy status to narcotic agent; W18.30XA Fall on same level, unspecified, initial encounter; Y92.129 Unspecified place in nursing home as the place of occurrence of the external cause
CPT/HCPCS: 99285; 96374; 73502; 73560; 72125; 70450; 96376; J2270 ×2